=== PATIENT | female | born 1945 | race Caucasian/White ===

== ENCOUNTER 2018-02-01 08:43 | Day surgery (SDC) | payer OTHER, SELFPAY ==
[2018-02-01] VITALS (7 sets, daily range): BP systolic 101–188; BP diastolic 57–90; PULSE 61–75; RESP 13–16; TEMP 36–36.6; O2SAT 98–100; BMI 23.5
[2018-02-01] MEDS: SODIUM CHLORIDE 0.9% 1,000 ML 200 ML IV (09:43)
--- NOTE | 2018-02-01 10:31 | P.HP_ITS ---
History of Present Illness Chief complaint: [id number] Narrative: Chary Carrion is a 72 year old female who presents today for screening colonoscopy. Her last colonoscopy was about 9 and half years ago. She denies any problems or symptoms related to the function of her GI tract. She reports that she needs a colonoscopy as part about maintenance program. [facility] Surgical History Status post appendectomy Family History Sister Family history of breast cancer Social History household members: spouse Meds Home Medications Medication Instructions Recorded Confirmed Type diazepam 0 PO HSP PRN 02/01/18 History zolpidem [Ambien CR] 12.5 mg PO HSP PRN 02/01/18 02/01/18 History Generic Name Dose Route Start Last Admin Trade Name Freq PRN Reason Stop Dose Admin Sodium Chloride 1,000 mls @ 200 mls/hr 02/01/18 09:45 02/01/18 09:43 Normal Saline 0.9% IV 200 mls/hr CONT MARIA DE JESUS Administration Allergies Allergy/AdvReac Type Severity Reaction Status Date / Time bupropion [BUPROPION] Allergy Mild RASH Unverified 12/27/17 12:15 Review of Systems Review of Systems All systems reviewed & are unremarkable except as noted in HPI and below Exam Vital Signs (past 8 hours): Vital Signs - 8 hr 3 02/01/18 09:19 Temperature 96.8 F L Pulse Rate 74 Respiratory Rate 16 Blood Pressure 188/90 H Pulse Oximetry 100 Pulse Oximetry 100 Oxygen Delivery Method Room Air Narrative Exam Narrative: Very healthy-appearing well-nourished well-developed lady in no distress HEENT: Normocephalic and atraumatic, pupils equal round reactive to light and accommodation with anicteric sclera Lungs: Clear bilaterally Heart: Regular rate and rhythm Abdomen: Soft, nontender, active bowel sounds. Extremities: Warm and well perfused without edema Assessment & Plan Plan: Plan: Very pleasant and healthy 72-year-old lady here for screening colonoscopy. We have discussed the risks and benefits of procedure the patient has expressed desire to continue
--- NOTE | 2018-02-01 11:06 | PM.OP.1 ---
Operative Date/Time/Diagnoses - Date of procedure: 02/01/18 Time of procedure: 11:06 Pre-op diagnosis: Screening Post-op diagnosis: same Procedure & Clinicians Procedure: Colonoscopy to the cecum Same procedure as scheduled: Yes Indications: Last colonoscopy 10 years ago Surgeon: Kary Diggs Anesthesia Type: Sedation (Versed 9 mg; fentanyl 300 mcg) Operative Notes Findings: 1. Excellent prep 2. Very elongated and tortuous transverse colon 3. No polyps or mass lesions 4. No AV malformations 5. Diverticulosis limited to the sigmoid region 6. Grade 1-2 internal hemorrhoids Closure Type: not applicable Specimen(s): none sent Procedure in detail: After obtaining informed consent, the patient was brought to the GI suite and placed in the left lateral decubitus position on the examination table. After placement of appropriate monitors, the patient was given incremental doses of Versed and Fentanyl until an appropriate level of sedation was achieved. A time out was held per SCOAP protocol. A digital rectal examination was performed and did not reveal any masses or obstructing lesions. The colonoscope was gently passed into the patient's anus and the entire colon navigated to the level of the cecum with moderate difficulty due to colon tortuosity. Once in the cecum, the scope was withdrawn being sure to go before and beyond all mucosal folds and prominences and get an excellent examination. The findings are noted above. At the level of the rectal vault, the scope was retroflexed and the internal anal canal was examined. The scope was straightened and air aspirated from the colon. The instrument was removed from the patient's body and the procedure was concluded. The patient was allowed to awaken from sedation without difficulty and taken to the post-anesthesia care unit in good condition. Total sedation time was 19 min Total withdrawal time was 9 min Condition: stable Disposition: PACU Plan for aftercare: 1. Discharged to home 2. Plan for next colonoscopy in 10 years or as clinically indicated.
[2018-02-01] MEDS: MIDAZOLAM 5 MG/5 ML VIAL IV (11:08)
[2018-02-01] MEDS: fentaNYL 250 MCG/5 ML INJ IV (11:09)
== END 2018-02-01 12:01 | disposition home or self-care (01) ==
PROVIDERS: Visit Provider Surgery
PROC: 0DJD8ZZ Inspection of Lower Intestinal Tract, Via Natural or Artificial Opening Endoscopic (ICD-10-PCS; CPT 45378; principal; 2018-02-01 09:45)
DX: Z12.11 Encounter for screening for malignant neoplasm of colon (principal); K57.30 Diverticulosis of large intestine without perforation or abscess without bleeding; K64.1 Second degree hemorrhoids
CPT/HCPCS: G0121; 99152; J2250; J3010

== ENCOUNTER → 2018-02-14 10:56 | Outpatient (CLI) | payer OTHER, SELFPAY ==
[2018-02-14 11:58] LABS: Alanine Aminotransferase 24 IU/L (9-52); Albumin 4.4 g/dL (3.5-5.0); Albumin Globulin Ratio 1.3 (1.0-2.8); Alkaline Phosphatase 70 U/L (38-126); Aspartate Aminotransferase 32 IU/L (14-36); Bilirubin Total 0.6 mg/dL (0.2-1.3); Blood Urea Nitrogen 14 mg/dL (7-17); Calcium 9.3 mg/dL (8.4-10.2); Carbon Dioxide 28 mmol/L (22-32); Chloride 97 mmol/L (98-107); Cholesterol 239 mg/dL (140-199); Estimated Glomerular Filt Rate > 60.0 mL/min (>60); Globulin 3.3 g/dL (1.7-4.1); Glucose 95 mg/dL (80-110); HDL Cholesterol 88 mg/dL (40-60); HEMOLYSIS 18 (0-50); LDL Cholesterol Calculated 139 mg/dL (<100); Potassium 4.6 mmol/L (3.4-5.1); Sodium 135 mmol/L (137-145); Total Protein 7.7 g/dL (6.3-8.2); Triglycerides 60 mg/dL (35-150)
[2018-02-14 12:07] LABS: Hemoglobin A1C% w Est Avg Glu 5.4 % (4.0-6.0)
== END ==
PROVIDERS: PCP Internal Medicine; Visit Provider Internal Medicine
DX: I10 Essential (primary) hypertension (principal); R73.9 Hyperglycemia, unspecified
CPT/HCPCS: 36415; 80053; 80061; 83036

== ENCOUNTER → 2018-04-10 15:10 | Outpatient (CLI) | payer OTHER, SELFPAY ==
--- NOTE | 2018-04-10 15:11 | DI.MG.S_ITS ---
BILATERAL DIGITAL SCREENING MAMMOGRAM 3D/2D WITH CAD: 04/10/2018 CLINICAL: Routine screening. Family history of breast cancer. Comparison is made to exams dated: 02/02/2016 mammogram, 01/26/2015 mammogram, and 01/14/2014 mammogram - [facility]. There are scattered fibroglandular elements in both breasts. Current study was also evaluated with a Computer Aided Detection (CAD) system. No significant masses, calcifications, or other findings are seen in either breast. There has been no significant interval change. IMPRESSION: NEGATIVE There is no mammographic evidence of malignancy. A 1 year screening mammogram is recommended. This exam was interpreted at Station ID: [id number]. NOTE: For mammograms, a report in lay terms will be sent to the patient. Approximately 15% of breast malignancies will not be visualized mammographically. In the management of a palpable breast mass, a negative mammogram must not discourage biopsy of a clinically suspicious lesion. Electronically Signed By: Franklin mcclellan/ashlie:04/11/2018 10:14:15 letter sent: Normal Exam ACR BI-RADS Category 1: Negative [id number]
== END ==
PROVIDERS: PCP Internal Medicine; Visit Provider Internal Medicine
DX: Z12.31 Encounter for screening mammogram for malignant neoplasm of breast (principal); Z80.3 Family history of malignant neoplasm of breast
CPT/HCPCS: 77063; 77067

== ENCOUNTER → 2019-10-14 10:55 | Outpatient (CLI) | payer OTHER, SELFPAY ==
[2019-10-14 12:18] LABS: Alanine Aminotransferase 19 IU/L (<35); Albumin 4.4 g/dL (3.5-5.0); Albumin Globulin Ratio 1.4 (1.0-2.8); Alkaline Phosphatase 77 U/L (38-126); Aspartate Aminotransferase 28 IU/L (14-36); BUN Creatinine Ratio 17.5 (6-22); Bilirubin Total 0.5 mg/dL (0.2-1.3); Blood Urea Nitrogen 14 mg/dL (7-17); Calcium 9.9 mg/dL (8.4-10.2); Carbon Dioxide 29 mmol/L (22-32); Chloride 97 mmol/L (98-107); Cholesterol 240 mg/dL (140-199); Estimated Glomerular Filt Rate > 60.0 mL/min (>60); Globulin 3.1 g/dL (1.7-4.1); Glucose 99 mg/dL (80-110); HDL Cholesterol 90 mg/dL (40-60); HEMOLYSIS < 15 (0-50); LDL Cholesterol Calculated 139 mg/dL (<100); Sodium 134 mmol/L (137-145); Total Protein 7.5 g/dL (6.3-8.2); Triglycerides 56 mg/dL (35-150)
[2019-10-14 12:19] LABS: Potassium 5.7 mmol/L (3.4-5.1)
== END ==
PROVIDERS: PCP Internal Medicine; Visit Provider Internal Medicine
DX: E78.5 Hyperlipidemia, unspecified (principal); I10 Essential (primary) hypertension
CPT/HCPCS: 36415; 80053; 80061

== ENCOUNTER 2020-02-09 19:32 | Emergency (ER) | payer OTHER, SELFPAY ==
[2020-02-09] VITALS (11 sets, daily range): BP systolic 181–248; BP diastolic 93–131; PULSE 62–83; RESP 16–26; TEMP 36.3–36.7; O2SAT 95–99
--- NOTE | 2020-02-09 19:55 | ED_ITS ---
HPI - General Adult General Chief complaint: Altered Mental Status Stated complaint: altered level of conciousness Time Seen by Provider: 02/09/20 19:50 Source: family Mode of arrival: Ambulatory Limitations: altered mental status History of Present Illness HPI narrative: 74-year-old woman with a history of hypertension and hyperlipidemia presents with altered mental status today. Her reports that she has been acting ?off? for the last 3-4 days. More distant less talkative and increasingly anxious regarding news reports around [place]. He reports significantly increased anxiety over the last few days and this evening she seemed to simply ?shut down in turn off? period. He was able to get her to walk to the car walk into the emergency department she was incontinent of urine at the registration desk and is not responding to questions or exam today. Her notes that she had a similar episode a couple of years ago and was seen in the emergency department, eventually talked with a mental health professional and was discharged home and has done well. She is not currently on antidepressants or benzodiazepines she does have a prescription for Ambien and told him that she had taken 1 yesterday during the day. Related Data Previous Rx's Medication Instructions Recorded diazepam 5 mg tablet See Rx Instructions PO HSP PRN #10 10/21/19 tab zolpidem 12.5 mg tablet,extended See Rx Instructions .ROUTE 10/21/19 release,multiphase .COMPLEX #30 tablet lorazepam [Ativan] 0.5 mg PO TID PRN #10 tab 02/09/20 Allergies Allergy/AdvReac Type Severity Reaction Status Date / Time bupropion [BUPROPION] Allergy Mild RASH Verified 10/21/19 13:51 Review of Systems Review of Systems Narrative: Review of systems is limited by her mental condition. Her notes that she has not complained of fevers, cough, chest pain, palpitations, abdominal pain. He does say that she told him she thought she might have a bladder infection. Remainder of review was noted by the [facility] Patient History Medical History Chicken pox (Resolved) Diverticular disease of colon (Chronic ~01/2018) Hyperlipidemia (Chronic) Hypertension (Chronic) Insomnia (Chronic) Measles (Resolved) Varicose veins of both lower extremities (Chronic) Surgical History Anesthesia (Resolved) History of mandibular surgery (Resolved ~2006) Status post appendectomy (Resolved ~1972) Family History Sister Family history of breast cancer Social History marital status: number of children: 0 household members: spouse lives independently: Yes caregiver/support person: No housing: house pets and animals: No education level: college (2 years) occupational status: other (Retired.) current occupational exposures/hazards: No 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 Lying comfortably on the stretcher, slightly flushed cheeks, no labored breathing eyes are closed and she is not responding to questions. She does have purposeful movement of all 4 extremities and notes ?ouch? with in and out urine catheter. HEENT: Moist mucous membranes, normal sclera with reactive pupils, Neck: No JVD, supple Respiratory: Lungs are clear to auscultation, no wheezing no rales no rhonchi. Full and symmetrical air movement Cardiac: Regular rate and rhythm no murmurs no bruits Abdomen: Soft nontender good bowel tones, no flank pain Skin: Warm and dry, no rashes Neurologic: Grossly neurologically intact with no obvious asymmetries or abnormalities Extremities: No trauma, well perfused Psych: Flat affect, no interaction at all Initial Vital Signs Initial Vital Signs: Vital Signs Temperature 98.1 F 02/09/20 19:43 Pulse Rate 79 02/09/20 19:43 Respiratory Rate 20 02/09/20 19:43 Blood Pressure 248/131 H 02/09/20 19:43 Pulse Oximetry 99 02/09/20 19:43 Course Orders Ordered: ED Orders 02/09/20 19:44 Complete Blood Count AUTO DIFF Stat Comprehensive Metabolic Panel Stat Lactate (Lactic Acid) Stat Lipase Stat Magnesium Stat Procalcitonin Stat Thyroid Stimulating Hormone Stat Troponin I Stat 02/09/20 19:50 Urine Culture Stat Urine Drug Screen, Rapid Stat Urine Microscopic Stat 02/09/20 19:54 EKG-12 Lead Stat 02/09/20 20:19 CT head/brain wo con Stat 02/09/20 20:50 Blood Culture Stat Ceftriaxone Sodium/Dextrose (Rocephin) 1 gm in 50 mls @ 100 mls/hr IV NOW ONE Stop: 02/09/20 22:34 Discontinued Medications Labetalol HCl (Trandate) 10 mg IV NOW ONE Stop: 02/09/20 20:23 Last Admin: 02/09/20 20:44 Dose: 10 mg Documented by: LISBETH Lorazepam (Ativan) 1 mg IV NOW ONE Stop: 02/09/20 22:05 Vital Signs Vital signs: Vital Signs - 8 hr 02/09/20 19:43 02/09/20 19:49 02/09/20 19:54 Temperature 98.1 F Pulse Rate 79 82 83 Respiratory Rate 20 18 Blood Pressure 248/131 H Blood Pressure [Right Arm] 233/110 H 242/112 H Pulse Oximetry 99 98 02/09/20 20:15 02/09/20 20:35 02/09/20 20:42 Temperature Pulse Rate 69 72 79 Respiratory Rate 16 18 26 H Blood Pressure Blood Pressure [Right Arm] 205/114 H 202/108 H 202/108 H Pulse Oximetry 99 99 02/09/20 20:44 02/09/20 20:54 02/09/20 21:47 Temperature Pulse Rate 70 62 66 Respiratory Rate 16 Blood Pressure 202/108 H 183/95 H Blood Pressure [Right Arm] 183/95 H Pulse Oximetry 95 Medical Decision Making Medical Records Medical records reviewed: Yes I reviewed the patient's medical records. Lab Data Lab results reviewed: Yes I reviewed the patient's lab results. Result diagrams: 02/09/20 19:44 02/09/20 19:44 Labs: Lab Results 02/09/20 02/09/20 02/09/20 Range/Units 19:44 19:44 19:44 WBC 6.8 (4.5-11.0) X10^3/uL RBC 4.34 (4.0-5.2) X10^6/uL Hgb 14.0 (12.0-16.0) g/dL Hct 38.8 (36-46) % MCV 89.3 (80-100) fL MCH 32.3 (26-34) PG MCHC 36.1 H (30-36) % RDW 13.2 (11.6-14.8) % Plt Count 284 (150-400) X10^3/uL Neut % (Auto) 50.0 (50-75) % Lymph % (Auto) 38.4 (25-40) % Spencer % (Auto) 8.6 (3-14) % Eos % (Auto) 2.2 (2-4) % Baso % (Auto) 0.8 (0-2) % Neut # (Auto) 3400 (3462-0852) /uL Lymph # (Auto) 2600 (9463-2950) /uL Spencer # (Auto) 600 (0-900) /uL Eos # (Auto) 200 (0-450) /uL Baso # (Auto) 100 (0-100) /uL Sodium 130 L (137-145) mmol/L Potassium 3.9 (3.4-5.1) mmol/L Chloride 94 L (98-107) mmol/L Carbon Dioxide 26 (22-32) mmol/L BUN 14 (7-17) mg/dL Creatinine 0.74 (0.52-1.04) mg/dL Estimated GFR > 60.0 (>60) mL/min BUN/Creatinine Ratio 18.9 (6-22) Glucose 109 (80-110) mg/dL Lactate (0.7-2.1) mmol/L Calcium 9.9 (8.4-10.2) mg/dL Magnesium 2.2 (1.6-2.3) mg/dL Total Bilirubin 0.5 (0.2-1.3) mg/dL AST 39 H (14-36) IU/L ALT 23 (<35) IU/L Alkaline Phosphatase 76 (38-126) U/L Troponin I < 0.012 (0.01-0.034) ng/mL Total Protein 8.4 H (6.3-8.2) g/dL Albumin 4.8 (3.5-5.0) g/dL Globulin 3.6 (1.7-4.1) g/dL Albumin/Globulin Ratio 1.3 (1.0-2.8) Lipase 138 (23-300) U/L Procalcitonin < 0.05 (<0.5) ng/mL TSH (0.47-4.68) uIU/mL Urine RBC (0-5/HPF) Urine WBC (0-5/HPF) Ur Squamous Epith Cells (0-5/HPF) Urine Bacteria (None) Ur Culture Indicated? U Opiates 300ng/mL cut (Negative) Ur Oxycodone Screen (Negative) Urine Methadone Screen (Negative) Ur Barbiturates Screen (Negative) U Tricyclic Antidepress (Negative) Ur Phencyclidine Scrn (Negative) Ur Amphetamines Screen (Negative) U Methamphetamines Scrn (Negative) Ur MDMA Scrn (Ecstasy) (Negative) U Benzodiazepines Scrn (Negative) Urine Cocaine Screen (Negative) U Marijuana (THC) Screen (Negative) 02/09/20 02/09/20 02/09/20 Range/Units 19:44 19:44 19:50 WBC (4.5-11.0) X10^3/uL RBC (4.0-5.2) X10^6/uL Hgb (12.0-16.0) g/dL Hct (36-46) % MCV (80-100) fL MCH (26-34) PG MCHC (30-36) % RDW (11.6-14.8) % Plt Count (150-400) X10^3/uL Neut % (Auto) (50-75) % Lymph % (Auto) (25-40) % Spencer % (Auto) (3-14) % Eos % (Auto) (2-4) % Baso % (Auto) (0-2) % Neut # (Auto) (9111-1660) /uL Lymph # (Auto) (0921-0302) /uL Spencer # (Auto) (0-900) /uL Eos # (Auto) (0-450) /uL Baso # (Auto) (0-100) /uL Sodium (137-145) mmol/L Potassium (3.4-5.1) mmol/L Chloride (98-107) mmol/L Carbon Dioxide (22-32) mmol/L BUN (7-17) mg/dL Creatinine (0.52-1.04) mg/dL Estimated GFR (>60) mL/min BUN/Creatinine Ratio (6-22) Glucose (80-110) mg/dL Lactate 1.0 (0.7-2.1) mmol/L Calcium (8.4-10.2) mg/dL Magnesium (1.6-2.3) mg/dL Total Bilirubin (0.2-1.3) mg/dL AST (14-36) IU/L ALT (<35) IU/L Alkaline Phosphatase (38-126) U/L Troponin I (0.01-0.034) ng/mL Total Protein (6.3-8.2) g/dL Albumin (3.5-5.0) g/dL Globulin (1.7-4.1) g/dL Albumin/Globulin Ratio (1.0-2.8) Lipase (23-300) U/L Procalcitonin (<0.5) ng/mL TSH 0.84 (0.47-4.68) uIU/mL Urine RBC 0-1/hpf (0-5/HPF) Urine WBC 5-10/hpf H (0-5/HPF) Ur Squamous Epith Cells 0-1 /hpf (0-5/HPF) Urine Bacteria Moderate (10-30) H (None) Ur Culture Indicated? Specimen cultured U Opiates 300ng/mL cut (Negative) Ur Oxycodone Screen (Negative) Urine Methadone Screen (Negative) Ur Barbiturates Screen (Negative) U Tricyclic Antidepress (Negative) Ur Phencyclidine Scrn (Negative) Ur Amphetamines Screen (Negative) U Methamphetamines Scrn (Negative) Ur MDMA Scrn (Ecstasy) (Negative) U Benzodiazepines Scrn (Negative) Urine Cocaine Screen (Negative) U Marijuana (THC) Screen (Negative) 02/09/20 Range/Units 19:50 WBC (4.5-11.0) X10^3/uL RBC (4.0-5.2) X10^6/uL Hgb (12.0-16.0) g/dL Hct (36-46) % MCV (80-100) fL MCH (26-34) PG MCHC (30-36) % RDW (11.6-14.8) % Plt Count (150-400) X10^3/uL Neut % (Auto) (50-75) % Lymph % (Auto) (25-40) % Spencer % (Auto) (3-14) % Eos % (Auto) (2-4) % Baso % (Auto) (0-2) % Neut # (Auto) (7239-4447) /uL Lymph # (Auto) (2908-6188) /uL Spencer # (Auto) (0-900) /uL Eos # (Auto) (0-450) /uL Baso # (Auto) (0-100) /uL Sodium (137-145) mmol/L Potassium (3.4-5.1) mmol/L Chloride (98-107) mmol/L Carbon Dioxide (22-32) mmol/L BUN (7-17) mg/dL Creatinine (0.52-1.04) mg/dL Estimated GFR (>60) mL/min BUN/Creatinine Ratio (6-22) Glucose (80-110) mg/dL Lactate (0.7-2.1) mmol/L Calcium (8.4-10.2) mg/dL Magnesium (1.6-2.3) mg/dL Total Bilirubin (0.2-1.3) mg/dL AST (14-36) IU/L ALT (<35) IU/L Alkaline Phosphatase (38-126) U/L Troponin I (0.01-0.034) ng/mL Total Protein (6.3-8.2) g/dL Albumin (3.5-5.0) g/dL Globulin (1.7-4.1) g/dL Albumin/Globulin Ratio (1.0-2.8) Lipase (23-300) U/L Procalcitonin (<0.5) ng/mL TSH (0.47-4.68) uIU/mL Urine RBC (0-5/HPF) Urine WBC (0-5/HPF) Ur Squamous Epith Cells (0-5/HPF) Urine Bacteria (None) Ur Culture Indicated? U Opiates 300ng/mL cut Negative (Negative) Ur Oxycodone Screen Negative (Negative) Urine Methadone Screen Negative (Negative) Ur Barbiturates Screen Negative (Negative) U Tricyclic Antidepress Negative (Negative) Ur Phencyclidine Scrn Negative (Negative) Ur Amphetamines Screen Negative (Negative) U Methamphetamines Scrn Negative (Negative) Ur MDMA Scrn (Ecstasy) Negative (Negative) U Benzodiazepines Scrn Negative (Negative) Urine Cocaine Screen Negative (Negative) U Marijuana (THC) Screen Negative (Negative) Point of Care Testing Glucose POC 100 Point of care testing: Point of Care Testing Glucose POC [address] scan - head: Radiologist's Impression: IMPRESSION: No acute intracranial process. Dictated by: John Horvath M.D. on 02/09/2020 at 20:52 ECG Data Attestation: I personally reviewed and interpreted this ECG as follows: Interpretation: Sinus rhythm at a rate of [address] T wave changes laterally. Normal intervals No acute ischemic changes MDM Narrative Medical decision making narrative: 74-year-old woman who is essentially healthy significant increased stressors. Her states that they both feel that the coronavirus and response nationally is a giant coaxed to destroy the country and it is effectively doing so. He states that she was out in the yard planting today and then this evening just became increasingly anxious, combative and non communicative. Workup does suggest a incidental bladder infection without evidence of sepsis. No significant electrolyte abnormalities CT scan is unremarkable and clinical exam does not suggest stroke. Patient is able to talk and when she does she is aggressive and clearly simply wants to go home. Her states that she has never made any suicidal or homicidal comments of any type and feels very comfortable that she is not in any danger of hurting herself. We opted to treat her bladder infection with a single dose of IV ceftriaxone, a single dose of a mg of IV Ativan to see if she is able to sleep better this evening and discharge home with her . I will also give her prescription for 10 tablets of 0.5 mg of Ativan that she can use as needed for anxiety and will strongly encourage her to follow-up with her primary care physician regarding her anxiety and to re-evaluate her blood pressure. Discharge Plan Departure Patient Disposition: Home Clinical Impression: Acute reaction to situational stress, Acute UTI Hypertension Qualifiers: Hypertension type: unspecified Qualified Code(s): I10 - Essential (primary) hypertension Instructions: DI for Anxiety -- Adult Activity Restrictions/Additional Instructions: Thank you for coming in today I found no acute medical issues that explain Chary's withdrawn state and significant agitation this evening. Specifically, there is no infection, there is no bleeding in her brain no tumors in her brain and no evidence of acute heart or lung issues. She does have a simple bladder infection, she has been given a dose of IV cef triaxone (antibiotic) in the emergency department and this should effectively treat the bladder infection without the need for additional medication. In the emergency department she did receive IV Ativan, and anxiety medicine. Hopefully this will allow Chary to sleep soundly this evening and re-evaluate everything with fresh eyes in the morning. If there are any concerns that Chary is going to hurt herself or hurt anyone else, please feel free to return to the emergency room and if necessary due called 911. I am going to give Chary a prescription for 0.5 mg of oral Ativan. This can be taken up to every 6 hours for acute anxiety over the next couple of days. 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 Please follow-up with your primary care physician regarding your elevated blood pressure in the emergency department today. It was significantly elevated and may simply come down when she is not quite so stressed but it does need further follow-up I hope all goes well. Prescriptions: New lorazepam [Ativan] 0.5 mg tablet 0.5 mg PO TID PRN (Reason: anxiety) Qty: 10 RF: 0 No Action diazepam 5 mg tablet See Rx Instructions PO HSP PRN (Reason: Sedation) Qty: 10 RF: 2 zolpidem 12.5 mg tablet,ext release multiphase See Rx Instructions .ROUTE .COMPLEX Qty: 30 RF: 3 Referrals: Usman Olea MD [Primary Care Provider] -
--- NOTE | 2020-02-09 19:58 | PC.NURSE ---
in out cath done , pt yelled Fuck this. will not follow commands, not talking. reports she is stressed out from all of this crap going on
--- NOTE | 2020-02-09 20:01 | PC.NURSE ---
reports she took an ambien in the daytime.
[2020-02-09 20:09] LABS: Bacteria Urine Moderate (10-30); Culture Indicated Urine Specimen Cultured; RBC Urine 0-1/HPF (0-5/HPF); Squamous Epithelial Cell Urine 0-1 /HPF (0-5/HPF); WBC Urine 5-10/HPF (0-5/HPF)
[2020-02-09 20:10] LABS: UR Morphine/Opiate cutoff 300 Negative (Negative); Ur Creatinine Normal (Normal); Ur Specific Gravity Normal (Normal); Urine Amphetamines Negative (Negative); Urine Barbiturates Negative (Negative); Urine Benzodiazepines Negative (Negative); Urine Cocaine Negative (Negative); Urine MDMA Negative (Negative); Urine Methadone Negative (Negative); Urine Methamphetamines Negative (Negative); Urine Oxycodone Negative (Negative); Urine Phencyclidine Negative (Negative); Urine Tetrahydrocannabinol Negative (Negative); Urine Tricyclic Antidepressant Negative (Negative); Urine pH Normal (Normal)
--- NOTE | 2020-02-09 20:19 | DI.CT.S_ITS ---
PROCEDURE: CT HEAD/BRAIN WO CON INDICATIONS: Altered mental status TECHNIQUE: Noncontrast 4.5 mm thick angled axial sections acquired from the foramen magnum to the vertex, with coronal and sagittal reformats. For radiation dose reduction, the following was used: automated exposure control, adjustment of mA and/or kV according to patient size. COMPARISON: None. FINDINGS: Image quality: Excellent. CSF spaces: Basal cisterns are patent. No extra-axial fluid collections. The ventricles are symmetric in size and shape. Brain: No intracranial bleeds or masses. Left frontoparietal encephalomalacia There is cerebral volume loss for age, with resultant ventricular and sulcal prominence. There are periventricular and deep white matter chronic small vessel ischemic changes. There is intracranial internal carotid artery atherosclerosis. Skull and face: Calvarium and visualized facial bones appear intact, without suspicious lesions. Sinuses: Visualized sinuses and mastoids are clear. IMPRESSION: No acute intracranial process. Dictated by: John Horvath M.D. on 02/09/2020 at 20:52 Approved by: John Horvath M.D. on 02/09/2020 at 20:56
[2020-02-09 20:31] LABS: Add Manual Diff / Slide Review NO; Basophils Absolute Auto 100 /uL (0-100); Basophils Percent Auto 0.8 % (0-2); Eosinophils Absolute Auto 200 /uL (0-450); Eosinophils Percent Auto 2.2 % (2-4); Hematocrit 38.8 % (36-46); Lymphocytes Absolute Auto 2600 /uL (1100-4500); Lymphocytes Percent Auto 38.4 % (25-40); Mean Corpuscular HGB Conc 36.1 % (30-36); Mean Corpuscular Hemoglobin 32.3 PG (26-34); Mean Corpuscular Volume 89.3 fL (80-100); Monocytes Absolute Auto 600 /uL (0-900); Monocytes Percent Auto 8.6 % (3-14); Neutrophils Absolute Auto 3400 /uL (1500-7000); Platelet Count 284 X10^3/uL (150-400); Red Blood Cell Count 4.34 X10^6/uL (4.0-5.2); Red Cell Distribution Width 13.2 % (11.6-14.8); White Blood Cell Count 6.8 X10^3/uL (4.5-11.0)
[2020-02-09 20:38] LABS: Alanine Aminotransferase 23 IU/L (<35); Albumin 4.8 g/dL (3.5-5.0); Albumin Globulin Ratio 1.3 (1.0-2.8); Alkaline Phosphatase 76 U/L (38-126); Aspartate Aminotransferase 39 IU/L (14-36); BUN Creatinine Ratio 18.9 (6-22); Bilirubin Total 0.5 mg/dL (0.2-1.3); Blood Urea Nitrogen 14 mg/dL (7-17); Calcium 9.9 mg/dL (8.4-10.2); Carbon Dioxide 26 mmol/L (22-32); Chloride 94 mmol/L (98-107); Estimated Glomerular Filt Rate > 60.0 mL/min (>60); Globulin 3.6 g/dL (1.7-4.1); Glucose 109 mg/dL (80-110); HEMOLYSIS 27 (0-50); Lipase 138 U/L (23-300); Magnesium 2.2 mg/dL (1.6-2.3); Potassium 3.9 mmol/L (3.4-5.1); Sodium 130 mmol/L (137-145); Total Protein 8.4 g/dL (6.3-8.2)
[2020-02-09] MEDS: LABETALOL 20 MG/4 ML SYRINGE 10 MG IV (20:44)
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
[2020-02-09 20:49] LABS: Troponin I < 0.012 ng/mL (0.01-0.034)
[2020-02-09 20:56] LABS: Procalcitonin < 0.05 ng/mL (<0.5)
[2020-02-09 21:22] LABS: Thyroid Stimulating Hormone 0.84 uIU/mL (0.47-4.68)
[2020-02-09] MEDS: CEFTRIAXONE 1 GM/50 ML FROZ.PIGGY IV (22:22)
[2020-02-09] MEDS: LORazepam 2 MG/ML INJ 1 MG IV (22:23)
--- NOTE | 2020-02-09 22:38 | PC.NURSE ---
Pt agitated and yelling out while I was giving meds, I just want to go home and lie on my couch, is that too much to ask?! and cursing at her .
== END 2020-02-09 23:01 | disposition home or self-care (01) ==
PROVIDERS: Emergency Provider Emergency Medicine; PCP Internal Medicine
DX: F43.0 Acute stress reaction (principal); N39.0 Urinary tract infection, site not specified; I10 Essential (primary) hypertension; E78.5 Hyperlipidemia, unspecified
CPT/HCPCS: 36415; 70450; 80053; 80305; 81015; 82962; 83605; 83690; 83735; 84145; 84443; 84484; 85025; 87040; 87077; 87086; 87186; 93005; 93010; 96365; 96375; 99284; J2060

== ENCOUNTER 2020-02-11 01:58 | Emergency (ER) | payer OTHER, SELFPAY ==
[2020-02-11] VITALS (8 sets, daily range): BP systolic 115–233; BP diastolic 66–123; PULSE 59–84; RESP 14–18; TEMP 36.6; O2SAT 98–100
--- NOTE | 2020-02-11 02:17 | ED.AMS ---
HPI - Altered Mental Status General Chief Complaint: Altered Mental Status Stated Complaint: spouse states mental problem Time Seen by Provider: 02/11/20 02:17 History of Present Illness HPI narrative: 74-year-old woman with a history of hypertension and hyperlipidemia presents for the 2nd night in a row to the emergency room with extreme anxiety and agitation. Last night she presented with significantly altered mental status and symptoms that were almost consistent with a conversion disorder. After Ativan she was more talkative however remained recalcitrant. In discussion with she and her she was discharged home with Ativan prescription to help with the severe anxiety that he believes is secondary to their belief that Covid is and entirely fabricated hoax that is being perpetrated to destroy our country. She was discharged home with Ativan which her states she did take today however she was increasingly agitated, unfocused and belligerent. He states that she would almost min ideally talk to herself and then slam doors and stump on floors and then come wake him a tube rate him more. He brought her back into the emergency department and she was quite abusive to him in the admissions area. On exam she is unwilling to interact with me or offer any additional history at all Related Data Previous Rx's Medication Instructions Recorded lorazepam [Ativan] 0.5 mg PO TID PRN #10 tab 02/11/20 diazepam 5 mg tablet See Rx Instructions PO HSP PRN #30 02/14/20 tab zolpidem 12.5 mg tablet,extended 12.5 mg PO BEDTIME PRN #30 tab 02/14/20 release,multiphase Allergies Allergy/AdvReac Type Severity Reaction Status Date / Time bupropion [BUPROPION] Allergy Mild RASH Verified 02/14/20 13:55 Review of Systems Review of Systems Narrative: Her states that she has had very little sleep over the last 3 days significantly increased caffeine intake over the last 3 days until today when he is withheld any caffeinated drinks from her at all and attempt to try to get her to sleep. ROS Unobtainable: Unobtainable due to mental condition Patient History Medical History Chicken pox (Resolved) Diverticular disease of colon (Chronic ~01/2018) Hyperlipidemia (Chronic) Hypertension (Chronic) Insomnia (Chronic) Measles (Resolved) Varicose veins of both lower extremities (Chronic) Surgical History Anesthesia (Resolved) History of mandibular surgery (Resolved ~2006) Status post appendectomy (Resolved ~1972) Family History Sister Family history of breast cancer Social History marital status: number of children: 0 household members: spouse lives independently: Yes caregiver/support person: No housing: house pets and animals: No education level: college occupational status: other current occupational exposures/hazards: No 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 HEENT: Moist mucous membranes, normal sclera with reactive pupils, Neck: No JVD, supple Respiratory: Lungs are clear to auscultation, no wheezing no rales no rhonchi. Full and symmetrical air movement Cardiac: Regular rate and rhythm no murmurs no bruits Abdomen: Soft nontender good bowel tones, no flank pain Skin: Warm and dry, no rashes, no bruises no indication of self-harm Neurologic: Grossly neurologically intact with no obvious asymmetries or abnormalities Extremities: No trauma, well perfused Psych: Agitated and uncooperative Initial Vital Signs Initial Vital Signs: Vital Signs Temperature 97.8 F 02/11/20 02:00 Pulse Rate 84 02/11/20 02:00 Respiratory Rate 18 02/11/20 02:00 Blood Pressure 233/123 H 02/11/20 02:00 Pulse Oximetry 99 02/11/20 02:00 Course Orders Ordered: Discontinued Medications Diphenhydramine HCl (Benadryl) 25 mg IV NOW ONE Stop: 02/11/20 02:20 Last Admin: 02/11/20 02:39 Dose: 25 mg Documented by: NANCI Haloperidol (Haldol) 2 mg IV NOW ONE Stop: 02/11/20 02:20 Last Admin: 02/11/20 02:38 Dose: 2 mg Documented by: NANCI Lorazepam (Ativan) 1 mg IV NOW ONE Stop: 02/11/20 02:20 Last Admin: 02/11/20 02:38 Dose: 1 mg Documented by: NANCI Vital Signs Vital signs: Vital Signs - 8 hr 02/11/20 02:00 02/11/20 04:09 02/11/20 05:00 Temperature 97.8 F Pulse Rate 84 65 69 Respiratory Rate 18 16 18 Blood Pressure 233/123 H Blood Pressure [Left Arm] 115/88 147/75 H Pulse Oximetry 99 100 100 02/11/20 05:30 Temperature Pulse Rate 62 Respiratory Rate 16 Blood Pressure Blood Pressure [Left Arm] 146/87 H Pulse Oximetry 100 MDM - Altered Mental Status Medical Records Attestation: I reviewed the patient's medical records. Lab Data Attestation: I reviewed the patient's lab results. Result diagrams: 02/11/20 03:05 02/11/20 06:20 Labs: Lab Results 02/11/20 02/11/20 02/11/20 Range/Units 03:05 03:05 05:51 WBC 5.8 (4.5-11.0) X10^3/uL RBC 4.00 (4.0-5.2) X10^6/uL Hgb 12.8 (12.0-16.0) g/dL Hct 35.9 L (36-46) % MCV 89.7 (80-100) fL MCH 32.0 (26-34) PG MCHC 35.6 (30-36) % RDW 13.3 (11.6-14.8) % Plt Count 265 (150-400) X10^3/uL Neut % (Auto) 49.2 L (50-75) % Lymph % (Auto) 35.0 (25-40) % [place] % (Auto) 11.4 (3-14) % Eos % (Auto) 3.6 (2-4) % Baso % (Auto) 0.8 (0-2) % Neut # (Auto) 2800 (2477-8686) /uL Lymph # (Auto) 2000 (9960-3312) /uL [place] # (Auto) 700 (0-900) /uL Eos # (Auto) 200 (0-450) /uL Baso # (Auto) 0 (0-100) /uL Sodium 129 L (137-145) mmol/L Potassium 3.7 (3.4-5.1) mmol/L Chloride 98 (98-107) mmol/L Carbon Dioxide 24 (22-32) mmol/L BUN 15 (7-17) mg/dL Creatinine 0.71 (0.52-1.04) mg/dL Estimated GFR > 60.0 (>60) mL/min BUN/Creatinine Ratio 21.1 (6-22) Glucose 107 (80-110) mg/dL Calcium 8.6 (8.4-10.2) mg/dL Total Bilirubin 0.3 (0.2-1.3) mg/dL AST 34 (14-36) IU/L ALT 20 (<35) IU/L Alkaline Phosphatase 66 (38-126) U/L Total Protein 6.9 (6.3-8.2) g/dL Albumin 3.8 (3.5-5.0) g/dL Globulin 3.1 (1.7-4.1) g/dL Albumin/Globulin Ratio 1.2 (1.0-2.8) Urine Color Yellow Urine Appearance Clear Urine pH 6.0 (4.5-8.0) Ur Specific [place] 1.010 (1.000-1.035) Urine Protein Negative (Negative) Urine Glucose (UA) Negative (Negative) g/dL Urine Ketones Negative (NEGATIVE) Urine Occult Blood Negative (Negative) Urine Nitrate Negative (Negative) Urine Bilirubin Negative (NEGATIVE) Urine Urobilinogen 0.2 (0.2) E.U./dL Ur Leukocyte Esterase Trace H (NEGATIVE) Urine RBC None seen (0-5/HPF) Urine WBC 1-5/hpf (0-5/HPF) Urine Bacteria None seen (None) Ur Culture Indicated? Specimen cultured U Opiates 300ng/mL cut (Negative) Ur Oxycodone Screen (Negative) Urine Methadone Screen (Negative) Ur Barbiturates Screen (Negative) U Tricyclic Antidepress (Negative) Ur Phencyclidine Scrn (Negative) Ur Amphetamines Screen (Negative) U Methamphetamines Scrn (Negative) Ur MDMA Scrn (Ecstasy) (Negative) U Benzodiazepines Scrn (Negative) Urine Cocaine Screen (Negative) U Marijuana (THC) Screen (Negative) 02/11/20 02/11/20 Range/Units 05:51 06:20 WBC (4.5-11.0) X10^3/uL RBC (4.0-5.2) X10^6/uL Hgb (12.0-16.0) g/dL Hct (36-46) % MCV (80-100) fL MCH (26-34) PG MCHC (30-36) % RDW (11.6-14.8) % Plt Count (150-400) X10^3/uL Neut % (Auto) (50-75) % Lymph % (Auto) (25-40) % [place] % (Auto) (3-14) % Eos % (Auto) (2-4) % Baso % (Auto) (0-2) % Neut # (Auto) (1056-2061) /uL Lymph # (Auto) (5675-5181) /uL [place] # (Auto) (0-900) /uL Eos # (Auto) (0-450) /uL Baso # (Auto) (0-100) /uL Sodium 132 L (137-145) mmol/L Potassium 4.1 (3.4-5.1) mmol/L Chloride 100 (98-107) mmol/L Carbon Dioxide 24 (22-32) mmol/L BUN 15 (7-17) mg/dL Creatinine 0.77 (0.52-1.04) mg/dL Estimated GFR > 60.0 (>60) mL/min BUN/Creatinine Ratio 19.5 (6-22) Glucose 99 (80-110) mg/dL Calcium 8.8 (8.4-10.2) mg/dL Total Bilirubin (0.2-1.3) mg/dL AST (14-36) IU/L ALT (<35) IU/L Alkaline Phosphatase (38-126) U/L Total Protein (6.3-8.2) g/dL Albumin (3.5-5.0) g/dL Globulin (1.7-4.1) g/dL Albumin/Globulin Ratio (1.0-2.8) Urine Color Urine Appearance Urine pH (4.5-8.0) Ur Specific [place] (1.000-1.035) Urine Protein (Negative) Urine Glucose (UA) (Negative) g/dL Urine Ketones (NEGATIVE) Urine Occult Blood (Negative) Urine Nitrate (Negative) Urine Bilirubin (NEGATIVE) Urine Urobilinogen (0.2) E.U./dL Ur Leukocyte Esterase (NEGATIVE) Urine RBC (0-5/HPF) Urine WBC (0-5/HPF) Urine Bacteria (None) Ur Culture Indicated? U Opiates 300ng/mL cut Negative (Negative) Ur Oxycodone Screen Negative (Negative) Urine Methadone Screen Negative (Negative) Ur Barbiturates Screen Negative (Negative) U Tricyclic Antidepress Negative (Negative) Ur Phencyclidine Scrn Negative (Negative) Ur Amphetamines Screen Negative (Negative) U Methamphetamines Scrn Negative (Negative) Ur MDMA Scrn (Ecstasy) Negative (Negative) U Benzodiazepines Scrn Negative (Negative) Urine Cocaine Screen Negative (Negative) U Marijuana (THC) Screen Negative (Negative) Imaging Data CT head February 08: Radiologist's Impression: IMPRESSION: No acute intracranial process. Dictated by: John Horvath M.D. on 02/09/2020 at 20:52 MDM Narrative Medical decision making narrative: CT scan last night was unremarkable. Labs were repeated today of note her mildly low sodium of 130 is now measured at 129. She is given a L of normal saline in the emergency department and BMP will be redrawn. Because of her significant agitation she is given 2 mg of Haldol, 1 mg of lorazepam, 25 mg of Benadryl to see if we can help her sleep and then re-evaluate with the help of social work and additional mental health staff tomorrow. There is no evidence of intracranial masses or tumors, no evidence of infection, drug use or other toxic exposure. She has no prior history of similar behaviors. Discharge Plan Departure Patient Disposition: Home Clinical Impression: Insomnia, Anxiety Discharge Date/Time: 02/11/20 11:44 Instructions: Insomnia, DI for Anxiety -- Adult Activity Restrictions/Additional Instructions: *You have been diagnosed with [insomnia and anxiety, greatly resolved after good night's rest] *What to do: *Take medications as directed: You may increase your Ativan from 0.5mg to 1.0mg if needed for sleep or anxiety *Follow up with your primary care provider on MondayFebruary 13 at 2pm (1:45pm check in) *Return to ER if you should have any new, worsening or concerning symptoms Prescriptions: New lorazepam [Ativan] 0.5 mg tablet 0.5 mg PO TID PRN (Reason: anxiety) Qty: 10 RF: 0 No Action diazepam 5 mg tablet See Rx Instructions PO HSP PRN (Reason: Sedation) Qty: 30 RF: 1 zolpidem 12.5 mg tablet,ext release multiphase 12.5 mg PO BEDTIME PRN (Reason: insomnia) Qty: 30 RF: 3 Referrals: Usman Olea MD [Primary Care Provider] -
--- NOTE | 2020-02-11 02:30 | PC.NURSE ---
During triage patient unable to tell me where she is but was able to tell me her date, age, name and year. when patient was asked why she is here patient states because my is stupid she also states i have the perfect life and my does not accept that. when I asked the patient what that means she states my gets mad when I act myself and he calls me crazy.
[2020-02-11] MEDS: HALOPERIDOL 5 MG/ML VIAL 2 MG IV (02:38)
[2020-02-11] MEDS: LORazepam 2 MG/ML INJ 1 MG IV (02:38)
[2020-02-11] MEDS: diphenhydrAMINE 50 MG/ML VIAL 25 MG IV (02:39)
--- NOTE | 2020-02-11 02:50 | PC.NURSE ---
while I was placing the IV in the patient we had a conversation about her family (how many children and grandchildren the patient had) and the patient states that she cannot remember all of her grandchildrens names. patient states I am so mad and upset that I cannot remember all of my grandchildrens names that I love and adore so much. patient calm and cooperative. patient tolerated well.
[2020-02-11 03:20] LABS: Add Manual Diff / Slide Review NO; Basophils Absolute Auto 0 /uL (0-100); Basophils Percent Auto 0.8 % (0-2); Eosinophils Absolute Auto 200 /uL (0-450); Eosinophils Percent Auto 3.6 % (2-4); Hematocrit 35.9 % (36-46); Hemoglobin 12.8 g/dL (12.0-16.0); Lymphocytes Absolute Auto 2000 /uL (1100-4500); Mean Corpuscular HGB Conc 35.6 % (30-36); Mean Corpuscular Volume 89.7 fL (80-100); Monocytes Absolute Auto 700 /uL (0-900); Monocytes Percent Auto 11.4 % (3-14); Neutrophils Absolute Auto 2800 /uL (1500-7000); Neutrophils Percent Auto 49.2 % (50-75); Platelet Count 265 X10^3/uL (150-400); Red Cell Distribution Width 13.3 % (11.6-14.8); White Blood Cell Count 5.8 X10^3/uL (4.5-11.0)
[2020-02-11 03:30] LABS: Alanine Aminotransferase 20 IU/L (<35); Albumin 3.8 g/dL (3.5-5.0); Albumin Globulin Ratio 1.2 (1.0-2.8); Alkaline Phosphatase 66 U/L (38-126); Aspartate Aminotransferase 34 IU/L (14-36); BUN Creatinine Ratio 21.1 (6-22); Bilirubin Total 0.3 mg/dL (0.2-1.3); Blood Urea Nitrogen 15 mg/dL (7-17); Calcium 8.6 mg/dL (8.4-10.2); Carbon Dioxide 24 mmol/L (22-32); Chloride 98 mmol/L (98-107); Estimated Glomerular Filt Rate > 60.0 mL/min (>60); Globulin 3.1 g/dL (1.7-4.1); Glucose 107 mg/dL (80-110); HEMOLYSIS < 15 (0-50); Potassium 3.7 mmol/L (3.4-5.1); Sodium 129 mmol/L (137-145); Total Protein 6.9 g/dL (6.3-8.2)
[2020-02-11 06:02] LABS: Appearance Urine UA CLEAR; Bacteria Urine None Seen; Bilirubin Urine UA NEGATIVE (NEGATIVE); Color Urine UA YELLOW; Glucose Urine UA NEGATIVE (Negative); Ketones Urine UA NEGATIVE (NEGATIVE); Leukocyte Esterase Urine UA TRACE (NEGATIVE); Nitrite Urine UA NEGATIVE (Negative); Occult Blood Urine UA NEGATIVE (Negative); Protein Urine UA NEGATIVE (Negative); RBC Urine None Seen (0-5/HPF); Urobilinogen Urine UA 0.2 E.U./dL (0.2)
[2020-02-11 06:09] LABS: UR Morphine/Opiate cutoff 300 Negative (Negative); Ur Creatinine 20 (Normal); Urine Amphetamines Negative (Negative); Urine Barbiturates Negative (Negative); Urine Benzodiazepines Negative (Negative); Urine Cocaine Negative (Negative); Urine MDMA Negative (Negative); Urine Methadone Negative (Negative); Urine Methamphetamines Negative (Negative); Urine Oxycodone Negative (Negative); Urine Phencyclidine Negative (Negative); Urine Tetrahydrocannabinol Negative (Negative); Urine Tricyclic Antidepressant Negative (Negative); Urine pH 6 (Normal)
[2020-02-11 06:16] LABS: Culture Indicated Urine Specimen Cultured; WBC Urine 1-5/HPF (0-5/HPF)
[2020-02-11 06:36] LABS: BUN Creatinine Ratio 19.5 (6-22); Blood Urea Nitrogen 15 mg/dL (7-17); Calcium 8.8 mg/dL (8.4-10.2); Carbon Dioxide 24 mmol/L (22-32); Chloride 100 mmol/L (98-107); Estimated Glomerular Filt Rate > 60.0 mL/min (>60); Glucose 99 mg/dL (80-110); HEMOLYSIS < 15 (0-50); Potassium 4.1 mmol/L (3.4-5.1); Sodium 132 mmol/L (137-145)
--- NOTE | 2020-02-11 10:37 | PC.NURSE ---
1010 hrs 02/11/20 Pt awake, alert, calm, requesting to go home. at bedside, agrees disharge to home is appropriate. poultry husbandry worker Mojgan advised, Dr Osborne advised.
--- NOTE | 2020-02-11 10:59 | PC.NURSE ---
Transitions Rn Care Coordinator Mojgan met with Pt and of Pt. Instructed RN to contact Dr Olea and ask him to see Pt today, or over ride Ambien prescription at [facility].
== END 2020-02-11 11:44 | disposition home or self-care (01) ==
PROVIDERS: Emergency Medicine; Emergency Provider Emergency Medicine; PCP Internal Medicine
DX: F41.9 Anxiety disorder, unspecified (principal); G47.00 Insomnia, unspecified; I10 Essential (primary) hypertension; E78.5 Hyperlipidemia, unspecified
CPT/HCPCS: 36415; 80048; 80053; 80305; 81001; 85025; 87086; 96374; 96375; 99284; J1200; J1630; J2060

== ENCOUNTER → 2020-06-26 12:24 | Outpatient (CLI) | payer OTHER, SELFPAY ==
--- NOTE | 2020-06-26 | DI.MG.S_ITS ---
BILATERAL DIGITAL SCREENING MAMMOGRAM 3D/2D WITH CAD: 06/26/2020 CLINICAL: Routine screening. Family history of breast cancer. Comparison is made to exams dated: 04/10/2018 mammogram, 02/02/2016 mammogram, and 01/26/2015 mammogram - [facility]. There are scattered fibroglandular elements in both breasts. Current study was also evaluated with a Computer Aided Detection (CAD) system. No significant masses, calcifications, or other findings are seen in either breast. There has been no significant interval change. IMPRESSION: NEGATIVE There is no mammographic evidence of malignancy. A 1 year screening mammogram is recommended. This exam was interpreted at Station ID: [id number]. NOTE: For mammograms, a report in lay terms will be sent to the patient. Approximately 15% of breast malignancies will not be visualized mammographically. In the management of a palpable breast mass, a negative mammogram must not discourage biopsy of a clinically suspicious lesion. Electronically Signed By: Alok hernandez/ashlie:06/26/2020 13:51:23 letter sent: Normal Exam ACR BI-RADS Category 1: Negative [id number]
== END ==
PROVIDERS: PCP Internal Medicine; Referring Provider Internal Medicine; Visit Provider Internal Medicine
DX: Z12.31 Encounter for screening mammogram for malignant neoplasm of breast (principal); Z80.3 Family history of malignant neoplasm of breast
CPT/HCPCS: 77063; 77067

== ENCOUNTER → 2022-08-02 16:23 | Outpatient (CLI) | payer OTHER, SELFPAY ==
[2022-08-02 17:07] LABS: HEMOLYSIS < 15 (0-50)
[2022-08-02 17:08] LABS: Blood Urea Nitrogen 23 mg/dL (7-17); Calcium 9.2 mg/dL (8.4-10.2); Carbon Dioxide 27 mmol/L (22-32); Chloride 90 mmol/L (98-107); Estimated Glomerular Filt Rate 46 mL/min (>60); Glucose 93 mg/dL (80-110); Sodium 126 mmol/L (137-145)
[2022-08-02 17:49] LABS: Potassium 4.6 mmol/L (3.4-5.1)
== END ==
PROVIDERS: PCP Internal Medicine; Referring Provider Internal Medicine; Visit Provider Internal Medicine
DX: I10 Essential (primary) hypertension (principal)
CPT/HCPCS: 36415; 80048

== ENCOUNTER → 2022-11-22 15:00 | Outpatient (CLI) | payer OTHER, SELFPAY ==
[2022-11-22 16:02] LABS: Blood Urea Nitrogen 21 mg/dL (7-17); Calcium 9.1 mg/dL (8.4-10.2); Carbon Dioxide 28 mmol/L (22-32); Chloride 92 mmol/L (98-107); Estimated Glomerular Filt Rate 58 mL/min (>60); Glucose 78 mg/dL (80-110); HEMOLYSIS < 15 (0-50); Potassium 4.5 mmol/L (3.4-5.1); Sodium 128 mmol/L (137-145)
== END ==
PROVIDERS: PCP Internal Medicine; Referring Provider Internal Medicine; Visit Provider Internal Medicine
DX: I10 Essential (primary) hypertension (principal)
CPT/HCPCS: 36415; 80048

== ENCOUNTER 2023-06-17 23:59 | Inpatient (IN) | payer MEDICARE, OTHER, SELFPAY ==
[2023-06-18] VITALS (26 sets, daily range): BP systolic 131–233; BP diastolic 81–156; PULSE 72–99; RESP 12–19; TEMP 35.9–36.7; O2SAT 95–100; BMI 24.2
--- NOTE | 2023-06-18 00:04 | DI.CT.S_ITS ---
PROCEDURE: CT HEAD/BRAIN WO CON INDICATIONS: Confusion. TECHNIQUE: Noncontrast 4.5 mm thick angled axial sections acquired from the foramen magnum to the vertex, with coronal and sagittal reformats. For radiation dose reduction, the following was used: automated exposure control, adjustment of mA and/or kV according to patient size. COMPARISON: [facility], CT, CT HEAD/BRAIN WO CON, 02/09/2020, 20:16. FINDINGS: Image quality: Excellent. CSF spaces: Basal cisterns are patent. No extra-axial fluid collections. The ventricles are symmetric in size and shape. Brain: No intracranial bleeds or masses. There is cerebral volume loss for age, with resultant ventricular and sulcal prominence. There are periventricular and deep white matter chronic small vessel ischemic changes. There is intracranial internal carotid artery atherosclerosis. Skull and face: Calvarium and visualized facial bones appear intact, without suspicious lesions. Sinuses: Visualized sinuses and mastoids are clear. IMPRESSION: Mild microvascular atherosclerotic change in the deep white matter of each hemisphere but no acute disease is found. Dictated by: Damir Bautista M.D. on 06/18/2023 at 1:25 Approved by: Damir Bautista M.D. on 06/18/2023 at 1:26
--- NOTE | 2023-06-18 00:04 | DI.CT.S_ITS ---
PROCEDURE: CT ANGIO HEAD AND NECK INDICATIONS: Confusion. TECHNIQUE: After the administration of intravenous contrast, 1 mm thick sections acquired from the aortic arch through the [place]. 3-dimensional ufobsjz-okkphiqrx-akfskikkzt (MIP) and/or volume rendering reformats were acquired of the central intracranial vasculature and neck separately. For radiation dose reduction, the following was used: automated exposure control, adjustment of mA and/or kV according to patient size. COMPARISON: None. FINDINGS: Image quality: Diagnostic. BRAIN: CSF spaces: Ventricles are normal in size and shape. Basal cisterns are patent. No extra-axial fluid collections. Brain: No significant abnormality of the brain can be seen. Skull and face: Calvarium and facial bones appear intact, without suspicious lesions. Orbits appear normal. Sinuses: Sinuses and mastoids are clear. HEAD CT ANGIOGRAPHY: Anterior circulation: Intracranial internal carotid arteries are normal in size and flow. The flow within the paired anterior cerebral arteries is normal and symmetric. The flow within the middle cerebral arteries is normal and symmetric. The anterior communicating artery is seen. No aneurysms are seen. Posterior circulation: Visualized portions of the vertebral arteries demonstrate normal caliber, and join to form a normal appearing basilar artery. Flow within the posterior cerebral arteries is normal and symmetric. No aneurysms are seen. NECK CT ANGIOGRAPHY: Carotid system: The great vessels demonstrate a conventional anatomy as they arise from the aortic arch. The origins of the common carotid arteries appear patent. The common carotid arteries demonstrate normal caliber and courses. The bifurcation regions are both widely patent. The internal carotid arteries demonstrate normal calibers and courses. Posterior circulation: The origins of the vertebral arteries both appear widely patent. The more superior extracranial portions of both vertebral arteries also demonstrate normal courses and calibers. They join to form a normal appearing basilar artery. Soft tissues: Visualized neck soft tissues demonstrate no suspicious abnormalities. Bones: No suspicious bony lesions. Visualized cervical spine appears normally aligned. IMPRESSION: No evidence of significant atherosclerotic stenosis, embolic disease, and source of reported confusion is not identified. Any quantitative measurements of stenosis were performed using NASCET criteria. Dictated by: Damir Bautista M.D. on 06/18/2023 at 1:26 Approved by: Damir Bautista M.D. on 06/18/2023 at 1:29
--- NOTE | 2023-06-18 00:05 | DI.RAD.S_ITS ---
PROCEDURE: XR CHEST 1V INDICATIONS: Chest pain. TECHNIQUE: One view of the chest was acquired. COMPARISON: None. FINDINGS: Surgical changes and devices: None. Lungs and pleura: Lungs are clear. No pleural effusions or pneumothorax. Mediastinum: Mediastinal contours appear normal. Heart size is normal. Bones and chest wall: No suspicious bony lesions. Overlying soft tissues appear unremarkable. IMPRESSION: Portable chest within normal limits for age. Dictated by: Damir Bautista M.D. on 06/18/2023 at 1:24 Approved by: Damir Bautista M.D. on 06/18/2023 at 1:24
[2023-06-18 00:28] LABS: INR 0.9 (0.9-1.3); Prothrombin Time 10.7 SECONDS (10.1-12.7)
[2023-06-18 00:30] LABS: PTT Partial Thromboplastin Tim 34 SECONDS (26-36)
[2023-06-18] MEDS: SODIUM CHLORIDE 0.9% 1,000 ML 150 ML IV (00:30)
[2023-06-18 00:34] LABS: Acetaminophen < 10 ug/mL (10-30); Ethanol (ETOH) < 10 mg/dL; Salicylate 1.8 mg/dL (<20)
[2023-06-18 00:35] LABS: Add Manual Diff / Slide Review NO; Alanine Aminotransferase 21 IU/L (<35); Albumin 4.3 g/dL (3.5-5.0); Albumin Globulin Ratio 1.2 (1.0-2.8); Alkaline Phosphatase 78 U/L (38-126); Aspartate Aminotransferase 28 IU/L (14-36); BUN Creatinine Ratio 25.6 (6-22); Basophils Absolute Auto 0 /uL (0-100); Basophils Percent Auto 0.7 % (0-2); Bilirubin Total 0.4 mg/dL (0.2-1.3); Blood Urea Nitrogen 23 mg/dL (7-17); Calcium 9.6 mg/dL (8.4-10.2); Carbon Dioxide 27 mmol/L (22-32); Chloride 90 mmol/L (98-107); Creatine Kinase 107 U/L (30-135); Eosinophils Absolute Auto 100 /uL (0-450); Eosinophils Percent Auto 1.7 % (2-4); Estimated Glomerular Filt Rate > 60 mL/min (>60); Globulin 3.5 g/dL (1.7-4.1); Glucose 113 mg/dL (80-110); HEMOLYSIS < 15 (0-50); Hematocrit 37.1 % (36-46); Hemoglobin 13.1 g/dL (12.0-16.0); Lipase 156 U/L (23-300); Lymphocytes Absolute Auto 2800 /uL (1100-4500); Lymphocytes Percent Auto 41.5 % (25-40); Mean Corpuscular HGB Conc 35.2 % (30-36); Mean Corpuscular Volume 90.8 fL (80-100); Monocytes Absolute Auto 700 /uL (0-900); Neutrophils Absolute Auto 3000 /uL (1500-7000); Neutrophils Percent Auto 45.1 % (50-75); Platelet Count 316 X10^3/uL (150-400); Potassium 3.7 mmol/L (3.4-5.1); Red Blood Cell Count 4.09 X10^6/uL (4.0-5.2); Sodium 126 mmol/L (137-145); Total Protein 7.8 g/dL (6.3-8.2); White Blood Cell Count 6.7 X10^3/uL (4.5-11.0)
[2023-06-18 00:47] LABS: NT-proBNP (BNP-Adult 18+) 1600 pg/mL (<450); Troponin I 0.032 ng/mL (0.01-0.034)
[2023-06-18 00:49] LABS: Lactate (Lactic Acid) 1.3 mmol/L (0.7-2.1)
[2023-06-18 00:59] LABS: COVID19 -Nasal RAPID Negative (Negative)
[2023-06-18 01:05] LABS: Appearance Urine UA CLEAR; Bilirubin Urine UA NEGATIVE (NEGATIVE); Color Urine UA YELLOW; Glucose Urine UA NEGATIVE (Negative); Ketones Urine UA NEGATIVE (NEGATIVE); Leukocyte Esterase Urine UA NEGATIVE (NEGATIVE); Nitrite Urine UA NEGATIVE (Negative); Occult Blood Urine UA NEGATIVE (Negative); Protein Urine UA NEGATIVE (Negative); Urobilinogen Urine UA 0.2 E.U./dL (0.2)
[2023-06-18 01:06] LABS: RBC Urine None Seen (0-5/HPF); Squamous Epithelial Cell Urine 10-30 /HPF (0-5/HPF); WBC Urine 1-5/HPF (0-5/HPF)
[2023-06-18] MEDS: LABETALOL 20 MG/4 ML SYRINGE 10 MG IV (01:06)
[2023-06-18 01:07] LABS: Bacteria Urine Few (2-10)
[2023-06-18 01:07] LABS: Procalcitonin 0.04 ng/mL (<0.5)
[2023-06-18 01:08] LABS: Culture Indicated Urine Cult Not Indicated
[2023-06-18 01:39] LABS: UR Morphine/Opiate cutoff 300 Negative (Negative); Ur Creatinine Normal (Normal); Ur Specific Gravity Normal (Normal); Urine Amphetamines Negative (Negative); Urine Barbiturates Negative (Negative); Urine Benzodiazepines Positive (Negative); Urine Cocaine Negative (Negative); Urine MDMA Negative (Negative); Urine Methadone Negative (Negative); Urine Methamphetamines Negative (Negative); Urine Oxycodone Negative (Negative); Urine Phencyclidine Negative (Negative); Urine Tetrahydrocannabinol Negative (Negative); Urine Tricyclic Antidepressant Negative (Negative); Urine pH Normal (Normal)
--- NOTE | 2023-06-18 01:59 | ED_ITS ---
HPI - Altered Mental Status General Chief Complaint: Altered Mental Status Stated Complaint: ALT Mental status/GLF Time Seen by Provider: 06/18/23 00:04 Source: patient and EMS Mode of arrival: EMS History of Present Illness HPI narrative: Patient is a 78-year-old female history of hypertension presenting today with sudden onset altered mental status and fall. at bedside reports that they were watching a movie she went up stairs he hurt her getting ready for bed she was sitting kind of on the edge of the bed leaning over and then fell over. Not a significant fall no obvious injury. No antiplatelet or anticoagulation medication. EMS was called she is very combative for EMS not able to follow directions. Found to be very hypertensive. She remains hypertensive here in the ED moving all extremities. Can not provide proper history. Denies any chest pain. Begrudgingly does follow some commands. Related Data Previous Rx's Medication Instructions Recorded hydrochlorothiazide 25 mg tablet 25 mg PO DAILY #90 tabs 08/02/22 olmesartan 40 mg tablet 20 mg PO DAILY #45 tabs 08/02/22 estradiol 0.01% (0.1 mg/gram) 1 g vaginal 2XW #42.5 grams 11/22/22 vaginal cream zolpidem 12.5 mg tablet,extended See Rx Instructions .Route 03/09/23 release,multiphase .COMPLEX #60 tabs diazepam 5 mg tablet 2.5 mg PO DAILY PRN insomnia #15 05/18/23 tabs Allergies Allergy/AdvReac Type Severity Reaction Status Date / Time bupropion [BUPROPION] Allergy Mild RASH Verified 08/02/22 16:02 olanzapine [From Zyprexa] AdvReac Intermediate puffiness/s Verified 08/02/22 16:02 welling Sulfa (Sulfonamide AdvReac Mild Lethargic Verified 08/02/22 16:02 Antibiotics) Review of Systems Review of Systems ROS Unobtainable: All systems reviewed & are unremarkable except as noted in HPI and below Patient History Medical History Chicken pox Diverticular disease of colon (~01/2018) Generalized anxiety disorder Hyperlipidemia Hypertension Insomnia Measles Varicose veins of both lower extremities Surgical History Anesthesia History of mandibular surgery (~2006) Status post appendectomy (~1972) Family History Sister Family history of breast cancer Social History marital status: number of children: 0 household members: spouse lives independently: Yes caregiver/support person: No housing: house pets and animals: No education level: college occupational status: other current occupational exposures/hazards: No 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 kwame/sabianist: [employer] special kwame needs: No leisure activities: exercise, music and other Smoking Status: Former smoker second hand exposure: No alcohol intake: former substance use type: does not use Smoking Status: Former smoker alcohol intake frequency: 0-2 drinks per day Substance Use Type: does not use Exam Initial Vital Signs Initial Vital Signs: Vital Signs Temperature 97.7 F 06/18/23 00:17 Pulse Rate 92 H 06/18/23 00:17 Respiratory Rate 16 06/18/23 00:17 Blood Pressure 206/101 H 06/18/23 00:17 Pulse Oximetry 100 06/18/23 00:17 Oxygen Delivery Method Room Air 06/18/23 00:17 GENERAL: Alert 78-year-old female and in no acute distress. HEENT: Head atraumatic,EOMI, pupils reactive, face symmetric, moist mucous membranes CARDIOVASCULAR: Regular rate and rhythm without murmurs, rubs or gallops. RESPIRATORY: Breath sounds equal bilaterally, no wheezes rales or rhonchi. ABDOMEN: Soft, nontender. Normoactive bowel sounds all 4 quadrants. No guarding or rebound. EXTREMITIES: Normal range of motion, no clubbing or edema. Neurovascularly intact NEUROLOGICAL: Alert and oriented x4.Normal gait and speech. Cranial nerves II through XII grossly intact. Good [id number], good [id number], strength equal bilaterally, no dysarthria or aphasia, sensation in tact to soft touch bilaterally, no visual changes, no facial droop SKIN: Warm, dry, no laceration, no petechiae, no rashes or lesions. Scores NIH Stroke Scale Level of Conciousness: Alert, keenly responsive Ask month/age: Answers both questions correctly. Open/close eyes, close hand: Performs both tasks correctly Best gaze horizontal: Normal Visual ocampo: No visual loss Facial palsy: Normal symetrical movement Left arm drift: No drift for full 10 sec Right arm drift: No drift for full 10 sec Left leg drift: No drift for full 5 sec Right leg drift: No drift for full 5 sec Limb ataxia: Absent Sensory on face/arms/legs: Normal, no sensory loss Best language: No aphasia, normal Dysarthria: Normal Extinction or inattention: No abnormality Total NIH Stroke scale score: 0 Course Orders Ordered: ED Orders 06/18/23 00:04 CT angio head and neck Stat CT head/brain wo con Stat 06/18/23 00:05 XR chest 1V Stat 06/18/23 00:09 Blood Culture Stat 06/18/23 00:10 Acetaminophen Stat Complete Blood Count AUTO DIFF Stat Comprehensive Metabolic Panel Stat ETOH [Ethanol (ETOH)] Stat Lactate (Lactic Acid) Stat Lipase Stat NT-proBNP (BNP-Adult 18+) Stat PTT Partial Thromboplastin Preet Stat Procalcitonin Stat Prothrombin Time INR Stat Salicylate Stat Troponin & CK Cardiac Panel Stat 06/18/23 00:35 COVID19 -Nasal RAPID Stat 06/18/23 00:52 UA Complete [Urinalysis and Microscopic] Stat 06/18/23 01:27 Urine Drug Screen, Rapid Stat Acetaminophen (Acetaminophen 325 Mg Tablet) 650 mg PO Q6H PRN PRN Reason: Fever/Mild Pain (1-3) Enoxaparin Sodium (Enoxaparin 40 Mg/0.4 Ml Syringe) 40 mg SUBCUT DAILY [facility] Hydrochlorothiazide (Hydrochlorothiazide 25 Mg Tablet) 25 mg PO DAILY [facility] Losartan Potassium (Losartan 50 Mg Tablet) 100 mg PO DAILY [facility] Naloxone HCl (Naloxone 0.4 Mg/Ml Vial) 0.2 mg IV Q2MIN PRN PRN Reason: Opiate Reversal Nitroglycerin (Nitroglycerin Oint 1 Inch/Gm Oint...G.) 1.5 inch TOP Q4H [facility] Oxycodone HCl (Oxycodone Ir 5 Mg Tablet) 5 mg PO Q3H PRN PRN Reason: Pain, Moderate (4-6) Sodium Chloride (Sodium Chloride 0.9% Flush) 10 ml IV PRN PRN PRN Reason: Flush Sodium Chloride (Sodium Chloride 0.9% Flush) 10 ml IV BID [facility] Discontinued Medications Sodium Chloride (Normal Saline 0.9%) 1,000 mls @ 150 mls/hr IV CONT MARIA DE JESUS Last Infusion: 10/01/23 02:37 Dose: 0 mls/hr Documented By: Admin: 06/18/23 00:30 Dose: 150 mls/hr Documented By: ELEAZAR Labetalol HCl (Labetalol 20 Mg/4 Ml Syringe) 10 mg IV NOW ONE Stop: 06/18/23 01:00 Last Admin: 06/18/23 01:06 Dose: 10 mg Documented By: ELEAZAR Nitroglycerin (Nitroglycerin Oint 1 Inch/Gm Oint...G.) 1.5 inch TOP Q4H [facility] Last Admin: 06/18/23 04:01 Dose: 1.5 inch Documented By: YELITZA Vital Signs Vital signs: Vital Signs - 8 hr 06/18/23 00:17 06/18/23 01:06 06/18/23 00:27 Temperature 97.7 F Pulse Rate 92 H 91 H 88 Respiratory Rate 16 15 Blood Pressure 206/101 H 212/105 H Pulse Oximetry 100 100 Oxygen Delivery Method Room Air 06/18/23 00:30 06/18/23 00:30 06/18/23 00:57 Temperature Pulse Rate 86 Respiratory Rate 17 Blood Pressure 205/100 H 214/156 H Pulse Oximetry 99 Oxygen Delivery Method 06/18/23 00:57 06/18/23 01:00 06/18/23 01:00 Temperature Pulse Rate 99 H 97 H Respiratory Rate 17 16 Blood Pressure 212/105 H Pulse Oximetry 98 98 Oxygen Delivery Method 06/18/23 01:13 06/18/23 01:13 06/18/23 01:15 Temperature Pulse Rate 82 Respiratory Rate 17 Blood Pressure 213/101 H 198/106 H Pulse Oximetry 97 Oxygen Delivery Method 06/18/23 01:15 06/18/23 01:20 06/18/23 01:20 Temperature Pulse Rate 76 75 Respiratory Rate 14 15 Blood Pressure 186/95 H Pulse Oximetry 98 97 Oxygen Delivery Method 06/18/23 01:25 06/18/23 01:25 06/18/23 01:30 Temperature Pulse Rate 72 Respiratory Rate 13 Blood Pressure 174/94 H 194/102 H Pulse Oximetry 98 Oxygen Delivery Method 06/18/23 01:30 06/18/23 01:35 06/18/23 01:35 Temperature Pulse Rate 79 80 Respiratory Rate 19 18 Blood Pressure 191/105 H Pulse Oximetry 95 98 Oxygen Delivery Method 06/18/23 01:40 06/18/23 01:40 06/18/23 01:45 Temperature Pulse Rate 80 Respiratory Rate 15 Blood Pressure 188/102 H 217/106 H Pulse Oximetry 98 Oxygen Delivery Method 06/18/23 01:45 06/18/23 01:50 06/18/23 01:50 Temperature Pulse Rate 81 81 Respiratory Rate 13 15 Blood Pressure 211/104 H Pulse Oximetry 97 99 Oxygen Delivery Method 06/18/23 01:55 06/18/23 01:55 06/18/23 02:01 Temperature Pulse Rate 80 83 Respiratory Rate 15 Blood Pressure 193/107 H Pulse Oximetry 98 Oxygen Delivery Method 06/18/23 02:03 06/18/23 02:03 06/18/23 02:05 Temperature Pulse Rate 81 81 Respiratory Rate 14 15 Blood Pressure 215/98 H Pulse Oximetry 99 98 Oxygen Delivery Method MDM - Altered Mental Status Lab Data 06/18/23 00:10 06/18/23 00:10 Labs: Lab Results 06/18/23 06/18/23 06/18/23 Range/Units 00:10 00:10 00:10 WBC 6.7 (4.5-11.0) X10^3/uL RBC 4.09 (4.0-5.2) X10^6/uL Hgb 13.1 (12.0-16.0) g/dL Hct 37.1 (36-46) % MCV 90.8 (80-100) fL MCH 32.0 (26-34) PG MCHC 35.2 (30-36) % RDW 13.0 (11.6-14.8) % Plt Count 316 (150-400) X10^3/uL Neut % (Auto) 45.1 L (50-75) % Lymph % (Auto) 41.5 H (25-40) % [place] % (Auto) 11.0 (3-14) % Eos % (Auto) 1.7 L (2-4) % Baso % (Auto) 0.7 (0-2) % Neut # (Auto) 3000 (6641-6821) /uL Lymph # (Auto) 2800 (9362-8400) /uL [place] # (Auto) 700 (0-900) /uL Eos # (Auto) 100 (0-450) /uL Baso # (Auto) 0 (0-100) /uL PT 10.7 (10.1-12.7) SECONDS INR 0.9 (0.9-1.3) APTT 34 (26-36) SECONDS Sodium (137-145) mmol/L Potassium (3.4-5.1) mmol/L Chloride (98-107) mmol/L Carbon Dioxide (22-32) mmol/L BUN (7-17) mg/dL Creatinine (0.52-1.04) mg/dL Estimated GFR (>60) mL/min BUN/Creatinine Ratio (6-22) Glucose (80-110) mg/dL Lactate (0.7-2.1) mmol/L Calcium (8.4-10.2) mg/dL Total Bilirubin (0.2-1.3) mg/dL AST (14-36) IU/L ALT (<35) IU/L Alkaline Phosphatase (38-126) U/L Total Creatine Kinase (30-135) U/L Troponin I (0.01-0.034) ng/mL NT-Pro-B Natriuret Pep (<450) pg/mL Total Protein (6.3-8.2) g/dL Albumin (3.5-5.0) g/dL Globulin (1.7-4.1) g/dL Albumin/Globulin Ratio (1.0-2.8) Lipase (23-300) U/L Procalcitonin (<0.5) ng/mL Urine Color Urine Appearance Urine pH (4.5-8.0) Ur Specific [place] (1.000-1.035) Urine Protein (Negative) Urine Glucose (UA) (Negative) g/dL Urine Ketones (NEGATIVE) Urine Occult Blood (Negative) Urine Nitrate (Negative) Urine Bilirubin (NEGATIVE) Urine Urobilinogen (0.2) E.U./dL Ur Leukocyte Esterase (NEGATIVE) Urine RBC (0-5/HPF) Urine WBC (0-5/HPF) Ur Squamous Epith Cells (0-5/HPF) Urine Bacteria (None) Ur Culture Indicated? Salicylates 1.8 (<20) mg/dL U Opiates 300ng/mL cut (Negative) Ur Oxycodone Screen (Negative) Urine Methadone Screen (Negative) Acetaminophen < 10 (10-30) ug/mL Ur Barbiturates Screen (Negative) U Tricyclic Antidepress (Negative) Ur Phencyclidine Scrn (Negative) Ur Amphetamines Screen (Negative) U Methamphetamines Scrn (Negative) Ur MDMA Scrn (Ecstasy) (Negative) U Benzodiazepines Scrn (Negative) Urine Cocaine Screen (Negative) U Marijuana (THC) Screen (Negative) Ethyl Alcohol < 10 ( - 10) mg/dL SARS-CoV-2 (PCR) (Negative) 06/18/23 06/18/23 06/18/23 Range/Units 00:10 00:10 00:10 WBC (4.5-11.0) X10^3/uL RBC (4.0-5.2) X10^6/uL Hgb (12.0-16.0) g/dL Hct (36-46) % MCV (80-100) fL MCH (26-34) PG MCHC (30-36) % RDW (11.6-14.8) % Plt Count (150-400) X10^3/uL Neut % (Auto) (50-75) % Lymph % (Auto) (25-40) % [place] % (Auto) (3-14) % Eos % (Auto) (2-4) % Baso % (Auto) (0-2) % Neut # (Auto) (6980-6147) /uL Lymph # (Auto) (1718-4890) /uL [place] # (Auto) (0-900) /uL Eos # (Auto) (0-450) /uL Baso # (Auto) (0-100) /uL PT (10.1-12.7) SECONDS INR (0.9-1.3) APTT (26-36) SECONDS Sodium 126 L (137-145) mmol/L Potassium 3.7 (3.4-5.1) mmol/L Chloride 90 L (98-107) mmol/L Carbon Dioxide 27 (22-32) mmol/L BUN 23 H (7-17) mg/dL Creatinine 0.90 (0.52-1.04) mg/dL Estimated GFR > 60 (>60) mL/min BUN/Creatinine Ratio 25.6 H (6-22) Glucose 113 H (80-110) mg/dL Lactate 1.3 (0.7-2.1) mmol/L Calcium 9.6 (8.4-10.2) mg/dL Total Bilirubin 0.4 (0.2-1.3) mg/dL AST 28 (14-36) IU/L ALT 21 (<35) IU/L Alkaline Phosphatase 78 (38-126) U/L Total Creatine Kinase 107 (30-135) U/L Troponin I 0.032 (0.01-0.034) ng/mL NT-Pro-B Natriuret Pep 1600 H (<450) pg/mL Total Protein 7.8 (6.3-8.2) g/dL Albumin 4.3 (3.5-5.0) g/dL Globulin 3.5 (1.7-4.1) g/dL Albumin/Globulin Ratio 1.2 (1.0-2.8) Lipase 156 (23-300) U/L Procalcitonin 0.04 (<0.5) ng/mL Urine Color Urine Appearance Urine pH (4.5-8.0) Ur Specific [place] (1.000-1.035) Urine Protein (Negative) Urine Glucose (UA) (Negative) g/dL Urine Ketones (NEGATIVE) Urine Occult Blood (Negative) Urine Nitrate (Negative) Urine Bilirubin (NEGATIVE) Urine Urobilinogen (0.2) E.U./dL Ur Leukocyte Esterase (NEGATIVE) Urine RBC (0-5/HPF) Urine WBC (0-5/HPF) Ur Squamous Epith Cells (0-5/HPF) Urine Bacteria (None) Ur Culture Indicated? Salicylates (<20) mg/dL U Opiates 300ng/mL cut (Negative) Ur Oxycodone Screen (Negative) Urine Methadone Screen (Negative) Acetaminophen (10-30) ug/mL Ur Barbiturates Screen (Negative) U Tricyclic Antidepress (Negative) Ur Phencyclidine Scrn (Negative) Ur Amphetamines Screen (Negative) U Methamphetamines Scrn (Negative) Ur MDMA Scrn (Ecstasy) (Negative) U Benzodiazepines Scrn (Negative) Urine Cocaine Screen (Negative) U Marijuana (THC) Screen (Negative) Ethyl Alcohol ( - 10) mg/dL SARS-CoV-2 (PCR) (Negative) 06/18/23 06/18/23 06/18/23 Range/Units 00:35 00:52 01:27 WBC (4.5-11.0) X10^3/uL RBC (4.0-5.2) X10^6/uL Hgb (12.0-16.0) g/dL Hct (36-46) % MCV (80-100) fL MCH (26-34) PG MCHC (30-36) % RDW (11.6-14.8) % Plt Count (150-400) X10^3/uL Neut % (Auto) (50-75) % Lymph % (Auto) (25-40) % [place] % (Auto) (3-14) % Eos % (Auto) (2-4) % Baso % (Auto) (0-2) % Neut # (Auto) (4546-0019) /uL Lymph # (Auto) (0105-9917) /uL [place] # (Auto) (0-900) /uL Eos # (Auto) (0-450) /uL Baso # (Auto) (0-100) /uL PT (10.1-12.7) SECONDS INR (0.9-1.3) APTT (26-36) SECONDS Sodium (137-145) mmol/L Potassium (3.4-5.1) mmol/L Chloride (98-107) mmol/L Carbon Dioxide (22-32) mmol/L BUN (7-17) mg/dL Creatinine (0.52-1.04) mg/dL Estimated GFR (>60) mL/min BUN/Creatinine Ratio (6-22) Glucose (80-110) mg/dL Lactate (0.7-2.1) mmol/L Calcium (8.4-10.2) mg/dL Total Bilirubin (0.2-1.3) mg/dL AST (14-36) IU/L ALT (<35) IU/L Alkaline Phosphatase (38-126) U/L Total Creatine Kinase (30-135) U/L Troponin I (0.01-0.034) ng/mL NT-Pro-B Natriuret Pep (<450) pg/mL Total Protein (6.3-8.2) g/dL Albumin (3.5-5.0) g/dL Globulin (1.7-4.1) g/dL Albumin/Globulin Ratio (1.0-2.8) Lipase (23-300) U/L Procalcitonin (<0.5) ng/mL Urine Color Yellow Urine Appearance Clear Urine pH 7.0 (4.5-8.0) Ur Specific [place] 1.010 (1.000-1.035) Urine Protein Negative (Negative) Urine Glucose (UA) Negative (Negative) g/dL Urine Ketones Negative (NEGATIVE) Urine Occult Blood Negative (Negative) Urine Nitrate Negative (Negative) Urine Bilirubin Negative (NEGATIVE) Urine Urobilinogen 0.2 (0.2) E.U./dL Ur Leukocyte Esterase Negative (NEGATIVE) Urine RBC None seen (0-5/HPF) Urine WBC 1-5/hpf (0-5/HPF) Ur Squamous Epith Cells 10-30 /hpf H D (0-5/HPF) Urine Bacteria Few (2-10) H (None) Ur Culture Indicated? Cult not indicated Salicylates (<20) mg/dL U Opiates 300ng/mL cut Negative (Negative) Ur Oxycodone Screen Negative (Negative) Urine Methadone Screen Negative (Negative) Acetaminophen (10-30) ug/mL Ur Barbiturates Screen Negative (Negative) U Tricyclic Antidepress Negative (Negative) Ur Phencyclidine Scrn Negative (Negative) Ur Amphetamines Screen Negative (Negative) U Methamphetamines Scrn Negative (Negative) Ur MDMA Scrn (Ecstasy) Negative (Negative) U Benzodiazepines Scrn Positive H (Negative) Urine Cocaine Screen Negative (Negative) U Marijuana (THC) Screen Negative (Negative) Ethyl Alcohol ( - 10) mg/dL SARS-CoV-2 (PCR) Negative (Negative) Imaging Data Extremity x-ray #1: Radiologist's Impression: PROCEDURE:? CT HEAD/BRAIN WO CON ? INDICATIONS:? Confusion. ? TECHNIQUE:? Noncontrast 4.5 mm thick angled axial sections acquired from the foramen magnum to the vertex, with coronal and sagittal reformats.? For radiation dose reduction, the following was used:? automated exposure control, adjustment of mA and/or kV according to patient size.? ? COMPARISON:? [facility], CT, CT HEAD/BRAIN WO CON, 02/09/2020, 20:16. ? FINDINGS:? Image quality:? Excellent.? ? CSF spaces:? Basal cisterns are patent.? No extra-axial fluid collections.? The ventricles are symmetric in size and shape.? ? Brain:? No intracranial bleeds or masses.? There is cerebral volume loss for age, with resultant ventricular and sulcal prominence.? There are periventricular and deep white matter chronic small vessel ischemic changes.? There is intracranial internal carotid artery atherosclerosis.? ? Skull and face:? Calvarium and visualized facial bones appear intact, without suspicious lesions.? ? Sinuses:? Visualized sinuses and mastoids are clear.? ? IMPRESSION:? Mild microvascular atherosclerotic change in the deep white matter of each hemisphere but no acute disease is found. ? ? Dictated by: Damir Bautista M.D. on 06/18/2023 at 1:25 ? Extremity x-ray #2: Radiologist's Impression: PROCEDURE:? CT ANGIO HEAD AND NECK ? INDICATIONS:? Confusion. ? TECHNIQUE:? After the administration of intravenous contrast, 1 mm thick sections acquired from the aortic arch through the [place] of [place].? 3-dimensional ezdehws-onmfptzde-gvwebbxlzn (MIP) and/or volume rendering reformats were acquired of the central intracranial vasculature and neck separately. For radiation dose reduction, the following was used:? automated exposure control, adjustment of mA and/or kV according to patient size.? ? COMPARISON:? None. ? FINDINGS:? Image quality:? Diagnostic.? ? BRAIN:? CSF spaces:? Ventricles are normal in size and shape.? Basal cisterns are patent.? No extra-axial fluid collections.? ? Brain:? No significant abnormality of the brain can be seen. ? ? ? Skull and face:? Calvarium and facial bones appear intact, without suspicious lesions.? Orbits appear normal.? ? Sinuses:? Sinuses and mastoids are clear.? ? HEAD CT ANGIOGRAPHY:? Anterior circulation:? Intracranial internal carotid arteries are normal in size and flow.? The flow within the paired anterior cerebral arteries is normal and symmetric.? The flow within the middle cerebral arteries is normal and symmetric.? The anterior communicating artery is seen.? No aneurysms are seen.? ? Posterior circulation:? Visualized portions of the vertebral arteries demonstrate normal caliber, and join to form a normal appearing basilar artery.? Flow within the posterior cerebral arteries is normal and symmetric.? No aneurysms are seen.? ? NECK CT ANGIOGRAPHY:? Carotid system:? The great vessels demonstrate a conventional anatomy as they arise from the aortic arch.? The origins of the common carotid arteries appear patent.? The common carotid arteries demonstrate normal caliber and courses.? The bifurcation regions are both widely patent.? The internal carotid arteries demonstrate normal calibers and courses.? ? Posterior circulation:? The origins of the vertebral arteries both appear widely patent.? The more superior extracranial portions of both vertebral arteries also demonstrate normal courses and calibers.? They join to form a normal appearing basilar artery.? ? Soft tissues:? Visualized neck soft tissues demonstrate no suspicious abnormalities.? ? Bones:? No suspicious bony lesions.? Visualized cervical spine appears normally aligned.? IMPRESSION:? No evidence of significant atherosclerotic stenosis, embolic disease, and source of reported confusion is not identified. ? Any quantitative measurements of stenosis were performed using NASCET criteria.? ? ? Dictated by: Damir Bautista M.D. on 06/18/2023 at 1:26 ? ? Chest x-ray: Radiologist's Impression: PROCEDURE:? XR CHEST 1V ? INDICATIONS:? Chest pain. ? TECHNIQUE:? One view of the chest was acquired.? ? COMPARISON:? None. ? FINDINGS:? ? Surgical changes and devices:? None.? ? Lungs and pleura:? Lungs are clear.? No pleural effusions or pneumothorax.? ? Mediastinum:? Mediastinal contours appear normal.? Heart size is normal.? ? Bones and chest wall:? No suspicious bony lesions.? Overlying soft tissues appear unremarkable.? ? ? IMPRESSION:? Portable chest within normal limits for age. ? ? Dictated by: Damir Bautista M.D. on 06/18/2023 at 1:24 ? ? ECG Data Interpretation: Sinus rhythm rate 92 W[place] interval 192 QRS [address] changes T-wave inversion noted in lead 3 MDM Narrative Medical decision making narrative: Patient is 78-year-old female presents today after a fall confusion and c ombativeness. Does not sound like fall was very significant. Head CT and CT angio do not show any evidence of intracranial hemorrhage been do show some microvascular changes. Her confusion and combativeness supple for TIA. Certainly confusion and mental status is waxing and waning nursing staff reports improvement and then reports declined. She is having some repetitive questioning possible transient global amnesia. She is NIH of 0. No infection at this time. She does have hypertension possible hypertensive encephalopathy she is given 1 dose of labetalol difficult to say if your symptoms improved or not. Is at bedside asked her to lift her leg she stared at me and said ?I am . Dr. Olea updated on patient's symptoms test results agrees with an observation and further work up. Discharge Plan Departure Patient Disposition: Admitted as Observation Clinical Impression: Brain TIA, Altered mental status Admit Date/Time: 06/18/23 02:10 Admit Provider: Usman Olea
[2023-06-18] MEDS: NITROGLYCERIN OINT 1 INCH/GM OINT...G. 1.5 INCH TOP ×2 (04:01→12:48)
--- NOTE | 2023-06-18 04:15 | PC.ADMIT ---
Addendum entered by Ashli Aleman R.N. 06/18/23 07:58: Noted at 0700 that patient had pulled off telemetry unit. Attempted to replace it and she became upset telling RN to leave room and get out. Spoken to calmly but patient ended up slapping RN. When addressed as Chary patient stated my name is Venessa, and I'm . Also noted that patient had pulled out IV and was requesting that identity band be taken off. Notified ICU that patient had removed telemetry and was not allowing staff to replace. Addendum entered by Ashli Aleman R.N. 06/18/23 07:57: Day RN, Karen, notified that home med list still needs to be reconciled. Original Note: [id number] Shila Jones Admission Note: The patient,Chary Carrion,78 y/o, was given written information regarding hospital policies, unit procedures and contact persons. Patient's smoking status: Former smoker. Vital Signs - 8 hr 06/18/23 00:17 06/18/23 01:06 06/18/23 00:27 Temperature 97.7 F Pulse Rate 92 H 91 H 88 Respiratory Rate 16 15 Blood Pressure 206/101 H 212/105 H Pulse Oximetry 100 100 Oxygen Delivery Method Room Air Oxygen Flow Rate 06/18/23 00:30 06/18/23 00:30 06/18/23 00:57 Temperature Pulse Rate 86 Respiratory Rate 17 Blood Pressure 205/100 H 214/156 H Pulse Oximetry 99 Oxygen Delivery Method Oxygen Flow Rate 06/18/23 00:57 06/18/23 01:00 06/18/23 01:00 Temperature Pulse Rate 99 H 97 H Respiratory Rate 17 16 Blood Pressure 212/105 H Pulse Oximetry 98 98 Oxygen Delivery Method Oxygen Flow Rate 06/18/23 01:13 06/18/23 01:13 06/18/23 01:15 Temperature Pulse Rate 82 Respiratory Rate 17 Blood Pressure 213/101 H 198/106 H Pulse Oximetry 97 Oxygen Delivery Method Oxygen Flow Rate 06/18/23 01:15 06/18/23 01:20 06/18/23 01:20 Temperature Pulse Rate 76 75 Respiratory Rate 14 15 Blood Pressure 186/95 H Pulse Oximetry 98 97 Oxygen Delivery Method Oxygen Flow Rate 06/18/23 01:25 06/18/23 01:25 06/18/23 01:30 Temperature Pulse Rate 72 Respiratory Rate 13 Blood Pressure 174/94 H 194/102 H Pulse Oximetry 98 Oxygen Delivery Method Oxygen Flow Rate 06/18/23 01:30 06/18/23 01:35 06/18/23 01:35 Temperature Pulse Rate 79 80 Respiratory Rate 19 18 Blood Pressure 191/105 H Pulse Oximetry 95 98 Oxygen Delivery Method Oxygen Flow Rate 06/18/23 01:40 06/18/23 01:40 06/18/23 01:45 Temperature Pulse Rate 80 Respiratory Rate 15 Blood Pressure 188/102 H 217/106 H Pulse Oximetry 98 Oxygen Delivery Method Oxygen Flow Rate 06/18/23 01:45 06/18/23 01:50 06/18/23 01:50 Temperature Pulse Rate 81 81 Respiratory Rate 13 15 Blood Pressure 211/104 H Pulse Oximetry 97 99 Oxygen Delivery Method Oxygen Flow Rate 06/18/23 01:55 06/18/23 01:55 06/18/23 02:01 Temperature Pulse Rate 80 83 Respiratory Rate 15 Blood Pressure 193/107 H Pulse Oximetry 98 Oxygen Delivery Method Oxygen Flow Rate 06/18/23 02:03 06/18/23 02:03 06/18/23 02:05 Temperature Pulse Rate 81 81 Respiratory Rate 14 15 Blood Pressure 215/98 H Pulse Oximetry 99 98 Oxygen Delivery Method Oxygen Flow Rate 06/18/23 02:15 06/18/23 02:15 06/18/23 04:01 Temperature Pulse Rate 79 77 Respiratory Rate 16 Blood Pressure 200/107 H 188/106 H Pulse Oximetry 100 Oxygen Delivery Method Oxygen Flow Rate 06/18/23 03:45 06/18/23 04:10 Temperature 96.7 F L Pulse Rate 77 Respiratory Rate 12 Blood Pressure 188/106 H Pulse Oximetry 100 Oxygen Delivery Method Room Air Oxygen Flow Rate 0 Patient admitted to room 207 from ER per wheelchair and assisted into bed. Patient sometimes responds to questions asked and other times with stare at staff with angry expression or close eyes and not respond at all. Spouse presented with patient and patient agitated and angry, swearing at both spouse and staff calling use you fuckers and directing us all to go in loud, angry voice. Once settled in bed staff and spouse left patient in room with bed alarm on. Patient had requested warm blankets and water which she was given and after staff/spouse left room she was calm and quiet. When spouse went back into room she again became agitated with him and directed him to go and leave which he then did. Spouse provided reassurance as he was upset and embarrassed by her behavior. When RN went back into room she directed me that she had to go to bathroom and insisted the commode be brought to her. Assisted to [facility] [place] and she voided 650cc clear, light yellow urine; denied dysuria. Assisted back into bed and vitals taken although she initially would verbally decline any care and pull her arm away when blood pressure cuff placed but allowed vitals to be taken when talked to calmly and told RN would leave after she was able to get vitals. At one point she stated she was and it was just me and my water as she laid on the bed sipping from the straw. Was able to answer with her name, and age but would not answer the other orientation question. Breath sounds were CTA with RA sat of 100%. HRR w/telemetry reading of SR w/1st degree AVB. BP elevated at 188/106 and allowed Nitro-bid paste to be applied. BT present and abdomen is soft. Feet were cool to touch but had + pedal pulses. No skin issues were noted but did not allow gown to be pulled up to fully view her back. She refused to have SCD's applied. Denied pain although spouse reported she has complained of some chronic back pain. Oriented to call light and bed controls. Plan of care reviewed with spouse. He was unable to list her medications or doses and did not know when her ambien or diazepam were new orders or when she last took any of her medications. RN requested that he bring in bottles of her medications with him when he visits later today and he stated he would do that. Fall risk score is high and bed alarm is activated. Patient is in view room for safety.
--- NOTE | 2023-06-18 07:00 | DI.ECHO.S_ITS ---
[place] [facility]+ [facility] +---------+ : : [address] : [address] [place] : : : : [id number] : : : : Phone: [phone] Echocardiogram Report + + :Name: GRACE LUCIANO Study Date: 06/19/2023 Height: 65 in : :[facility] ReadingLocation: Weight: 146 lb : : Gender: Female BSA: 1.7 m2 : :: 1945 Age: 78 yrs BP: 129/66 mmHg: :Reason For Study: TIA : :Ordering Physician: JERONIMO, : :GAIL Guardado Performed By: Penny Palacio : :Referring: GAIL DECKER : + + Interpretation Summary Normal left ventricle size with hyperdynamic function and ejection fraction 65-70%. No valvular abnormality. Procedure: A two-dimensional transthoracic echocardiogram with color flow and Doppler was performed. The study quality was technically adequate. There is no prior echocardiogram noted for this patient. The patient was in sinus rhythm with heart rates between 80-91 bpm during the exam. Left Ventricle: The left ventricle is normal in size and wall thickness. The left ventricle is hyperdynamic. The ejection fraction is estimated to be 65- 70%. There are no focal wall motion abnormalities. Right Ventricle: The right ventricle is normal in size and function. Atria: The left atrial size is normal. Right atrial size is normal. There is no Doppler evidence for an interatrial shunt. Mitral Valve: The mitral valve is normal in structure and function. There is trace mitral regurgitation. Aortic Valve: The aortic valve is grossly normal. The aortic valve opens well. There is no aortic valve stenosis. No aortic regurgitation is present. Tricuspid Valve: The tricuspid valve is normal in structure and function. There is trace tricuspid regurgitation. Pulmonic Valve: The pulmonic valve is not well visualized. There is no pulmonic valvular regurgitation. Great Vessels: The aortic root is normal size. The dimensions of the ascending aorta are normal. The IVC is of normal diameter and collapses greater than 50% with a sniff. This suggests a low right atrial pressure of 3 mm Hg. Pericardium/ Pleura There is no pericardial effusion. There is no pleural effusion. MMode/2D Measurements & Calculations LVIDd: 3.9 cm LVOT diam: 1.8 cm LVIDs: 2.6 cm Ao root diam: 2.6 cm FS: 34.3 % Ao Arch Diam (Prox Trans): 2.8 cm EPSS: 0.27 cm IVSd: 0.91 cm LVPWd: 0.77 cm LV mejia. diameter/BSA (cm/m^2): 2.3 LV sys. diameter/BSA (cm/m^2): 1.5 LA A2 area: 11.5 cm2 RA long axis: 3.6 cm LA A4 area: 9.3 cm2 RA area: 9.2 cm2 LA length (vol): 3.8 cm RA vol: 19.8 ml LA vol: 23.9 ml RA : 11.5 ml/m2 LA vol index: 13.8 ml/m2 IVC diam: 0.61 cm RVD1 (basal): 2.7 cm RVD2 (mid): 2.3 cm TAPSE: 1.8 cm Doppler Measurements & Calculations Ao V2 max: 154.8 cm/sec LVOT Max Liu: 142.3 cm/sec Ao V2 mean: 106.5 cm/sec LV V1 max P.1 mmHg Ao max P.6 mmHg LV V1 VTI: 23.9 cm Ao mean P.1 mmHg YANIRA(I,D): 2.5 cm2 Ao V2 VTI: 24.3 cm YANIRA(V,D): 2.3 cm2 sev ratio: 0.98 YANIRA indexed to BSA (cm^2/m^2): 1.5 MV E max liu: 63.5 cm/sec TR max liu: 248.9 cm/sec MV A max liu: 99.3 cm/sec TR max P.8 mmHg MV E/A: 0.64 PA V2 max: 86.3 cm/sec Med Peak E' Liu: 5.8 cm/sec PA V2 mean: 63.8 cm/sec E/E' med: 11.0 PA mean P.8 mmHg Lat Peak E' Liu: 7.3 cm/sec PA pr(Accel): 52.0 mmHg E/E' lat: 8.7 E/e' average: 9.8 MV dec time: 0.19 sec SV(LVOT): 61.2 ml Electronically signed by: Dez Cobian on Reading Physician:06/19/2023 11:23 AM
--- NOTE | 2023-06-18 07:57 | PM.HP.1 ---
History of Present Illness History of Present Illness Date Patient Seen: 06/18/23 Time Patient Seen: 07:57 Chief complaint: ALT Mental status/GLF Narrative: Patient was apparently in normal state of health until last evening when after watching something on television was spouse went upstairs to get ready for bed. Spouse found her sort of slumped over the bed and minimally if at all responsive. He managed to get her down on the ground and she remained minimally responsive. He called EMS who arrived she became quite combative at that point. They managed to get her to the emergency department. Evaluation in route revealed that she was quite hypertensive. In the ER she was a bit more cooperative in seem to wax and wane in her mental status with times a more cooperation times more combativeness. She had head CT, CT angiography of the head and neck as well as chest x-ray that were unremarkable Remains quite hypertensive with minimal response to labetalol. She was admitted for further evaluation Since then she is persistently been combative. She is removed her IV her telemetry. She is refusing to take any medication whatsoever. She refused to let her blood pressure be rechecked she Rips the cuff offer arm each and every time. She ripped off her leg as well. She perseverates on repeating a phrase ?father, son, Holy spirit, Chary, Richie ?and then seems to have more normal conversation. She is oriented to person place and time. She really is not cooperative any other evaluation She moves all 4 extremities obviously Spouse reports she is been completely normal the last several days and that the phrase she is repeating his not something he is heard her say before Patient has had several episodes quite similar to this over the last 6 years or so. She gets very agitated even combative. In August 2017, patient presented to the ER with altered mental status combative behavior etcetera. This was felt to be triggered by a friend being diagnosed with Parkinson's disease prior. Although there was also issues around [place] and another friend of the family who apparently became sick and . She was given ketamine at that time which made her quite sedated. Once she began to wake she had moments of clarity but still quite aggressive and yelling at staff, although periods of lucency followed by these more combative episodes. She was evaluated by [facility] and altogether they thought it was more insomnia related as it came on quite abruptly and progressively got worse as she became sleep deprived. She was given some Ativan to help her sleep. The Ativan or time help her to sleep better and she seem to improve. Her blood pressure in the ER upon presentation that time was 205/117. She dropped all the way down to 144/53 prior to discharge from the ED. She then seem to be okay until she was seen again in the ER in January of 2020. At that time she I am less talkative and more anxious per spouse. She seem to be more catatonic than anything else and did not respond to questions or any evaluation in the emergency department. Apparently she was quite concerned about the ongoing COVID pandemic at that time. She was seen on 2 successive nights in January that year. She was given some lorazepam to begin with and became more agitated belligerent and unfocused. She was slamming doors stopping her feet and she was quite abusive to her spouse. She was given some Haldol lorazepam and Benadryl and seem to sleep and was much better upon awaking and discharged home. She was seen in follow-up in the outpatient clinic and with the combination of medications including the zolpidem and diazepam she uses chronically for sleep as well as the lorazepam that she was sent home with she apparently slept and seem to be much better. She really had no insight into her abnormal behavior. She still was expressing believe in conspiracy theories around the coronavirus pandemic at that time. At that time she was strongly recommended to discontinue use of zolpidem and diazepam for sleep and try alternate medications but she declined. She then presented again in February of 2020 with worsening sleep and decline in her overall mental status. Spouse reported she was taking does not and does not use of nonprescription nicotine lozenges which she had been using since she quit smoking many years prior. She had some paranoia around her 's suppose it attempts to drug her with medications. She apparently was quite focused again on the conspiracy of the coronavirus pandemic. She did agree to stop the nicotine lozenges which he was successful in doing. She also agree to stop the diazepam and zolpidem in favor of Zyprexa. She was seen again a week later and was off of the diazepam and lorazepam sleeping much better was taking the Zyprexa and appeared to be much more close to normal baseline mental functioning. A week later she followed up still functioning more normally from mental status standpoint but she had self discontinued the Zyprexa as she felt like it made her puffy and swollen all over. I had switched her to quetiapine in effort to help her sleep but that left her feeling drugged and dopey somewhat the next day. That that point she had the quetiapine tapered and discontinued. She did not restart any of her other medications at that point. It was at this point that her spouse finally said he thought he ?had his back ?patient's blood pressure was quite elevated in the 180 over 90s range. Patient was seen again 3 weeks later with blood pressure remaining quite elevated in the 180s over 90s range. She was reporting difficulty sleeping and really wanted to resume her zolpidem and diazepam. I declined to refill those for her and put her on trazodone instead help her sleep. A week later she was reporting no improvement in sleep although blood pressure was some better in the 160s over 80s. She was seen again about 3 weeks later blood pressure in the 150s over 80s still not sleeping well although reporting that the trazodone at a dose of 100 mg was making her feel slowly sleepy and somewhat groggy but she was not really sleeping well. At that point her zolpidem was restarted, and she was okay to use diazepam on as needed basis several times a week. She was seen again in person about 2 months later. Blood pressure was much better although she had had a reaction to lisinopril which was being used at that time and she was switched to olmesartan over the phone. Her mental status seem to be much better. She was sleeping better with his zolpidem plus as needed diazepam. She seems stable for about a year when she began to have a reaction to the on olmesartan and began to cut back on dose because she felt like it was causing a rash. She was switched to amlodipine which she subsequently self discontinued went back to low-dose losartan plus hydrochlorothiazide. That is seem to control her blood pressure and she had not been seen by me since July 2022. Overall given the above, I have come to believe that there is more of a mental health issue ongoing here than anything else. I believe the blood pressure changes are secondary to the mental status changes and not causing it but more a response to the mental status/psychotic issues. She is had some altered mental status with completely normal blood pressures and she is had elevated blood pressures with no mental status changes. I am hopeful that we can help calm her down with medication then re-evaluate her blood pressure Given the above there does seem to be some underlying mental health issue with this individual that has been exacerbated at this time. With all of these other events her blood pressure seem quite elevated at times although would come back down at x2 so not convinced the hypertension by itself is the etiology but more an effect rather than a cause. [facility] Medical History Chicken pox Diverticular disease of colon (~01/2018) Generalized anxiety disorder Hyperlipidemia Hypertension Insomnia Measles Varicose veins of both lower extremities Surgical History Anesthesia History of mandibular surgery (~2006) Status post appendectomy (~1972) Family History Sister Family history of breast cancer Social History marital status: number of children: 0 household members: spouse lives independently: Yes caregiver/support person: No housing: house pets and animals: No education level: college occupational status: other current occupational exposures/hazards: No 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 kwame/religious: [employer] special kwame needs: No leisure activities: exercise, music and other Smoking Status: Former smoker second hand exposure: No alcohol intake: former substance use type: does not use Meds Home Medications and Allergies Home Medications Medication Instructions Recorded Confirmed Type hydrochlorothiazide 25 mg tablet 25 mg PO DAILY #90 tabs 08/02/22 06/18/23 Rx estradiol 0.01% (0.1 mg/gram) 1 g vaginal 2XW #42.5 grams 11/22/22 06/18/23 Rx vaginal cream zolpidem 12.5 mg tablet,extended See Rx Instructions .Route 03/09/23 06/18/23 Rx release,multiphase .COMPLEX #60 tabs diazepam 5 mg tablet 2.5 mg PO DAILY PRN insomnia #15 05/18/23 06/18/23 Rx tabs Allergies Allergy/AdvReac Type Severity Reaction Status Date / Time bupropion [BUPROPION] Allergy Mild RASH Verified 08/02/22 16:02 lisinopril AdvReac Intermediate Cough Verified 06/18/23 14:46 olanzapine [From Zyprexa] AdvReac Intermediate puffiness/s Verified 08/02/22 16:02 welling Sulfa (Sulfonamide AdvReac Mild Lethargic Verified 08/02/22 16:02 Antibiotics) amlodipine AdvReac Feet Verified 06/18/23 14:53 swelling Review of Systems Review of Systems ROS: Yes unobtainable due to mental status Exam Vital Signs (past 8 hours): - 06/18/23 00:17 06/18/23 01:06 06/18/23 00:27 Temperature 97.7 F Pulse Rate 92 H 91 H 88 Respiratory Rate 16 15 Blood Pressure 206/101 H 212/105 H Pulse Oximetry 100 100 Oxygen Delivery Method Room Air Oxygen Flow Rate 06/18/23 00:30 06/18/23 00:30 06/18/23 00:57 Temperature Pulse Rate 86 Respiratory Rate 17 Blood Pressure 205/100 H 214/156 H Pulse Oximetry 99 Oxygen Delivery Method Oxygen Flow Rate 06/18/23 00:57 06/18/23 01:00 06/18/23 01:00 Temperature Pulse Rate 99 H 97 H Respiratory Rate 17 16 Blood Pressure 212/105 H Pulse Oximetry 98 98 Oxygen Delivery Method Oxygen Flow Rate 06/18/23 01:13 06/18/23 01:13 06/18/23 01:15 Temperature Pulse Rate 82 Respiratory Rate 17 Blood Pressure 213/101 H 198/106 H Pulse Oximetry 97 Oxygen Delivery Method Oxygen Flow Rate 06/18/23 01:15 06/18/23 01:20 06/18/23 01:20 Temperature Pulse Rate 76 75 Respiratory Rate 14 15 Blood Pressure 186/95 H Pulse Oximetry 98 97 Oxygen Delivery Method Oxygen Flow Rate 06/18/23 01:25 06/18/23 01:25 06/18/23 01:30 Temperature Pulse Rate 72 Respiratory Rate 13 Blood Pressure 174/94 H 194/102 H Pulse Oximetry 98 Oxygen Delivery Method Oxygen Flow Rate 06/18/23 01:30 06/18/23 01:35 06/18/23 01:35 Temperature Pulse Rate 79 80 Respiratory Rate 19 18 Blood Pressure 191/105 H Pulse Oximetry 95 98 Oxygen Delivery Method Oxygen Flow Rate 06/18/23 01:40 06/18/23 01:40 06/18/23 01:45 Temperature Pulse Rate 80 Respiratory Rate 15 Blood Pressure 188/102 H 217/106 H Pulse Oximetry 98 Oxygen Delivery Method Oxygen Flow Rate 06/18/23 01:45 06/18/23 01:50 06/18/23 01:50 Temperature Pulse Rate 81 81 Respiratory Rate 13 15 Blood Pressure 211/104 H Pulse Oximetry 97 99 Oxygen Delivery Method Oxygen Flow Rate 06/18/23 01:55 06/18/23 01:55 06/18/23 02:01 Temperature Pulse Rate 80 83 Respiratory Rate 15 Blood Pressure 193/107 H Pulse Oximetry 98 Oxygen Delivery Method Oxygen Flow Rate 06/18/23 02:03 06/18/23 02:03 06/18/23 02:05 Temperature Pulse Rate 81 81 Respiratory Rate 14 15 Blood Pressure 215/98 H Pulse Oximetry 99 98 Oxygen Delivery Method Oxygen Flow Rate 06/18/23 02:15 06/18/23 02:15 06/18/23 04:01 Temperature Pulse Rate 79 77 Respiratory Rate 16 Blood Pressure 200/107 H 188/106 H Pulse Oximetry 100 Oxygen Delivery Method Oxygen Flow Rate 06/18/23 03:45 06/18/23 04:10 Temperature 96.7 F L Pulse Rate 77 Respiratory Rate 12 Blood Pressure 188/106 H Pulse Oximetry 100 Oxygen Delivery Method Room Air Oxygen Flow Rate 0 Oxygen Delivery Method Room Air Oxygen Flow Rate 0 Narrative Exam Narrative: Elderly female in no obvious distress lying on a bed in the hospital She moves all 4 extremities Lungs appear clear, heart is regular rate and rhythm although can not get a good exam. Again moving all 4 extremities but detailed exam not possible Objective Labs 06/18/23 00:10 06/18/23 00:10 Labs: Laboratory Results - last 24 hr 06/18/23 06/18/23 06/18/23 00:10 00:10 00:10 WBC 6.7 RBC 4.09 Hgb 13.1 Hct 37.1 MCV 90.8 MCH 32.0 MCHC 35.2 RDW 13.0 Plt Count 316 Neut % (Auto) 45.1 L Lymph % (Auto) 41.5 H [place] % (Auto) 11.0 Eos % (Auto) 1.7 L Baso % (Auto) 0.7 Neut # (Auto) 3000 Lymph # (Auto) 2800 [place] # (Auto) 700 Eos # (Auto) 100 Baso # (Auto) 0 PT 10.7 INR 0.9 APTT 34 Sodium Potassium Chloride Carbon Dioxide BUN Creatinine Estimated GFR BUN/Creatinine Ratio Glucose Lactate Calcium Total Bilirubin AST ALT Alkaline Phosphatase Total Creatine Kinase Troponin I NT-Pro-B Natriuret Pep Total Protein Albumin Globulin Albumin/Globulin Ratio Lipase Procalcitonin Urine Color Urine Appearance Urine pH Ur Specific [place] Urine Protein Urine Glucose (UA) Urine Ketones Urine Occult Blood Urine Nitrate Urine Bilirubin Urine Urobilinogen Ur Leukocyte Esterase Urine RBC Urine WBC Ur Squamous Epith Cells Urine Bacteria Ur Culture Indicated? Salicylates 1.8 U Opiates 300ng/mL cut Ur Oxycodone Screen Urine Methadone Screen Acetaminophen < 10 Ur Barbiturates Screen U Tricyclic Antidepress Ur Phencyclidine Scrn Ur Amphetamines Screen U Methamphetamines Scrn Ur MDMA Scrn (Ecstasy) U Benzodiazepines Scrn Urine Cocaine Screen U Marijuana (THC) Screen Ethyl Alcohol < 10 SARS-CoV-2 (PCR) 06/18/23 06/18/23 06/18/23 00:10 00:10 00:10 WBC RBC Hgb Hct MCV MCH MCHC RDW Plt Count Neut % (Auto) Lymph % (Auto) [place] % (Auto) Eos % (Auto) Baso % (Auto) Neut # (Auto) Lymph # (Auto) [place] # (Auto) Eos # (Auto) Baso # (Auto) PT INR APTT Sodium 126 L Potassium 3.7 Chloride 90 L Carbon Dioxide 27 BUN 23 H Creatinine 0.90 Estimated GFR > 60 BUN/Creatinine Ratio 25.6 H Glucose 113 H Lactate 1.3 Calcium 9.6 Total Bilirubin 0.4 AST 28 ALT 21 Alkaline Phosphatase 78 Total Creatine Kinase 107 Troponin I 0.032 NT-Pro-B Natriuret Pep 1600 H Total Protein 7.8 Albumin 4.3 Globulin 3.5 Albumin/Globulin Ratio 1.2 Lipase 156 Procalcitonin 0.04 Urine Color Urine Appearance Urine pH Ur Specific [place] Urine Protein Urine Glucose (UA) Urine Ketones Urine Occult Blood Urine Nitrate Urine Bilirubin Urine Urobilinogen Ur Leukocyte Esterase Urine RBC Urine WBC Ur Squamous Epith Cells Urine Bacteria Ur Culture Indicated? Salicylates U Opiates 300ng/mL cut Ur Oxycodone Screen Urine Methadone Screen Acetaminophen Ur Barbiturates Screen U Tricyclic Antidepress Ur Phencyclidine Scrn Ur Amphetamines Screen U Methamphetamines Scrn Ur MDMA Scrn (Ecstasy) U Benzodiazepines Scrn Urine Cocaine Screen U Marijuana (THC) Screen Ethyl Alcohol SARS-CoV-2 (PCR) 06/18/23 06/18/23 06/18/23 00:35 00:52 01:27 WBC RBC Hgb Hct MCV MCH MCHC RDW Plt Count Neut % (Auto) Lymph % (Auto) [place] % (Auto) Eos % (Auto) Baso % (Auto) Neut # (Auto) Lymph # (Auto) [place] # (Auto) Eos # (Auto) Baso # (Auto) PT INR APTT Sodium Potassium Chloride Carbon Dioxide BUN Creatinine Estimated GFR BUN/Creatinine Ratio Glucose Lactate Calcium Total Bilirubin AST ALT Alkaline Phosphatase Total Creatine Kinase Troponin I NT-Pro-B Natriuret Pep Total Protein Albumin Globulin Albumin/Globulin Ratio Lipase Procalcitonin Urine Color Yellow Urine Appearance Clear Urine pH 7.0 Ur Specific [place] 1.010 Urine Protein Negative Urine Glucose (UA) Negative Urine Ketones Negative Urine Occult Blood Negative Urine Nitrate Negative Urine Bilirubin Negative Urine Urobilinogen 0.2 Ur Leukocyte Esterase Negative Urine RBC None seen Urine WBC 1-5/hpf Ur Squamous Epith Cells 10-30 /hpf H D Urine Bacteria Few (2-10) H Ur Culture Indicated? Cult not indicated Salicylates U Opiates 300ng/mL cut Negative Ur Oxycodone Screen Negative Urine Methadone Screen Negative Acetaminophen Ur Barbiturates Screen Negative U Tricyclic Antidepress Negative Ur Phencyclidine Scrn Negative Ur Amphetamines Screen Negative U Methamphetamines Scrn Negative Ur MDMA Scrn (Ecstasy) Negative U Benzodiazepines Scrn Positive H Urine Cocaine Screen Negative U Marijuana (THC) Screen Negative Ethyl Alcohol SARS-CoV-2 (PCR) Negative Assessment & Plan Assessment & Plan narrative: 1. Hypertensive crisis-patient with severe hypertension. She is refusing her oral medication. We do not have IV access. Given her previous episodes (of altered mental status) with hypertension seemingly being quite labile I am more of the believe that the hypertension is an effect of her psychotic changes rather than the cause. However if we can get her mental status improved I would be aggressive about trying to treat blood pressure, and if she will tolerate topical nitrates for instance currently I would use that to try and control her blood pressure. Right now she is refusing all oral medication and does not have intravenous access. In addition once blood pressure is better and depending on mental status may need further evaluation for possible causes of a TIA including MRI and echocardiogram but reviewing her past history since about 2017 with several of these episodes I am beginning to believe this is more of a mental illness than any sort of vascular neurologic process 2. Psychosis-I think this is the primary driving force behind her severe hypertension. As per the HPI above she is had several episodes like this over the last several years. Will trying get control of her psychosis with either oral medication which she is currently refusing or intramuscular Haldol and if needed intramuscular ketamine. I anticipate controlling or improving her mental status will improve her blood pressure as well. Some of her episodes above have possibly been related to inappropriate use of OTC medications or supplements or something. Spouse is unaware of any of this at this time and, of course, patient is unable to provide any useful information. Tox screen was positive only for the benzodiazepines that we know she takes on a regular basis. I anticipate having Psychiatry see her when available which is unfortunately not today. 3. VTE prophylaxis-patient unwilling to accept injectable medication. Unwilling to tolerate SCDs. Hopefully if we can get her mental status improved we can prophylax with these interventions
--- NOTE | 2023-06-18 09:19 | PC.NURSE ---
Addendum entered by Lupe Maharaj R.N. 06/18/23 18:47: Called MD Olea once more as patient reports she just wants to sleep. MD Olea ordered PO sleeping pills and d/c'ed chemical restraint order. This RN asked patient if she would take oral sleeping pills. She said yes. When this RN brought the medication to her, she said I won't take that! Get out! Addendum entered by Lupe Maharaj R.N. 06/18/23 16:56: MD Olea at bedside at 1245. He ordered 10mg IM Haldol shortly afterward for violent behavior. Given dose at 1336 with the help of RN coordinator Argenis, little relief for patient over the next hour. Pt still attempting to hit staff and during any patient care. MD Olea ordered a second dose, given per order. MD Olea also ordered Restraint order set, due to IM Haldol being given as a chemical restraint. Q15min safety checks done. At 1610, MD Olea ordered another dose of IM Haldol as patient still attempting to hit and kick during any care. This RN returned to patient's room before giving 3rd dose of Haldol and, using a lot of distraction and counting backwards, patient allowed this RN to check her BP, which is much improved (131/81). Called MD Olea to let him know, held 3rd dose of IM Haldol. MD Olea states MRI tomorrow if patient feeling better, not today. Pt continues to refuse full physical assessment, though she would let me listen to her heart and lungs briefly before she started swearing at me. Pt OOB with SBA to bathroom. Denies pain. Patient ate no breakfast or lunch today, though has been drinking water. MD bennett. Will continue to monitor. Addendum entered by Lupe Maharaj R.N. 06/18/23 13:10: Pt's spouse arrived at 1230 with a medication list. He is unsure how much medication is left at home and reports I don't know when she takes these medications or the last time she took them. She has a lot of ambien at home, I don't know how much is there. Updated medication list with patient's spouse. Pt seems to be mildly comforted with spouse present. Still refusing to take any oral medication or allow an accurate BP reading. Able to obtain temp, HR, and O2 - all within normal limits. BP was obtained, but patient kicking and screaming during BP reading, and done on leg. 233/145. MD Olea at bedside while this was being done. Addendum entered by Lupe Maharaj R.N. 06/18/23 11:40: Called Dr Olea. Let him know that patient refused MRI and echo - patient yelled at electronic train control technician. He stated he would be up soon to assess. Original Note: Day shift: Pt refused to let ELECTRICAL PROJECT ENGINEER take vitals. This RN told Pt How can I help you be more comfortable? Patient said Go! This RN said I need to check your vital signs and do an assessment. Then I can go. Patient said Fuck off. No, you can't touch me. This RN unable to give meds or assess patient. Pt clearly not slurring words. No noticeable weakness. Will try again in an hour. Pt is talking to herself in her room. She stated If I won't talk to my , I won't talk to you. Then immediately turned her head and said Richie, get her out of here. No one else was in the room. Richie not present.
--- NOTE | 2023-06-18 09:33 | DI.MRI.S_ITS ---
PROCEDURE: MR HEAD/BRAIN WO CON INDICATIONS: TIA TECHNIQUE: Non-contrast axial T1 spin echo, axial T2 fast spin echo, sagittal and axial FLAIR, coronal T2 fast spin echo, axial gradient echo, axial diffusion and ADC through the brain. COMPARISON: [facility], CT, CT ANGIO HEAD AND NECK, 06/18/2023, 0:31. [facility], CT, CT HEAD/BRAIN WO CON, 06/18/2023, 0:31. FINDINGS: Image quality: This examination is limited by involuntary motion artifact. CSF spaces: Ventricles appear symmetric in size and shape. Basal cisterns are patent. No extra-axial fluid collections. Brain: No intracranial bleeds or mass effects. There is cerebral volume loss for age. There are periventricular and deep white matter chronic small vessel ischemic changes. Brainstem appears normal. Diffusion-weighted images show no acute ischemic insults. No chronic ischemic insults. Normal intravascular flow voids are present. Skull and face: Calvarial bone marrow is normal in signal. Orbits are normal. Sinuses: Sinuses and mastoids are clear. IMPRESSION: No findings of acute or subacute infarction can be seen. Dictated by: David Jacobo M.D. on 06/19/2023 at 8:57 Approved by: David Jacobo M.D. on 06/19/2023 at 8:59
[2023-06-18] MEDS: HALOPERIDOL 5 MG/ML VIAL 10 MG IM ×2 (13:36→14:42)
--- NOTE | 2023-06-18 13:47 | CM.DANOTE ---
Attempted to meet with patient, but she tells CM to why don't you go away, NOW, screaming. She continues to verbalize and sing loudly alone in the room. Bedside RN is preparing medication, Richie at bedside and agrees to discussion. Chart reviewed for case assessment. Patient is a 78 year old admitted for altered mental status. states she was completely normal until last evening. He states she had something similiar happen several years ago and Dr. Olea adjusted her medication. He denies prior psychiatric illness, and states she does not currently see any psychiatric providers. He states she is usually very healthy but has had life long difficulty with sleeping. Patient refuses any interaction with healthcare team except allows in the room. CM team following for progression of care. PCP: Lefty Payer: [employer] DME: None DCP: SHAUN Tinoco RN CM Discharge Planning/Care Management CM Discharge Assessment Start: 06/18/23 13:45 Freq: Status: Active Protocol: Document 06/18/23 13:46 BQ (Rec: 06/18/23 13:47 BQ [id number]) Discharge Planning Assessment Assigned Framing Mechanic Jacqueline Tinoco RN, CM Advance Directives? No Advance Directives on File No History Provided By Family Member Has Patient been admitted in last 30 No days? Prior Living Arrangements House Household Members spouse Type of transporation used prior to Drives own vehicle admit Independent with ADL's Yes Is patient alert and oriented? No Caregiver for Another No Barriers to Discharge Yes Comment Altered mental status Discharge Plan Home Referrals Initiated Other Additional Comment TBAissatou Whiteboard Updated in Patient Room with No name and ext. # of Framing Mechanic Comment Patient will not allow any caregivers in room Review Status In Process Next Review Type Continued Stay Review
[2023-06-19 02:00] VITALS: RESP 14
[2023-06-19 05:00] VITALS: BP 129/66; PULSE 84; RESP 14; TEMP 36.3; O2SAT 96
[2023-06-19 07:50] VITALS: BP 167/96; PULSE 63; RESP 18; TEMP 36.1; O2SAT 97
[2023-06-19 08:06] VITALS: BP 167/96; PULSE 63
[2023-06-19] MEDS: LOSARTAN 50 MG TABLET 100 MG PO (08:06)
[2023-06-19] MEDS: hydroCHLOROthiazide 25 MG TABLET PO (08:06)
--- NOTE | 2023-06-19 08:20 | P.PN_ITS ---
Subjective Subjective Date Patient Seen: 06/19/23 Time Patient Seen: 08:20 Interval history: Patient received 2 doses of IM Haldol yesterday and with that seem calmer. She finally let us check her blood pressure which was actually pretty good in the 140 systolic. She then felt like she needs to sleep and requested some Ambien and diazepam. She was given this and she did sleep overnight. Blood pressure has been not quite as well controlled but certainly nothing like the 200+ systolic This morning her mental status seems to be at baseline. She is very little recollection of what happened since she watched the movie with her spouse Monday evening. She has vague recollection of being here in the hospital and seeing me for instance yesterday she could describe what I was wearing etcetera but does not really have any insight as to what is going on She tells me she was sleeping okay before she came to the hospital denies taking her medications in an unusual fashion. Does report that she stop taking the olmesartan at home because she was just feeling lethargic with it and was taking only hydrochlorothiazide and they had been monitoring her blood pressure and it was okay Had echo done this morning Tells me she is okay to try having an MRI this morning Exam Vital Signs (past 8 hours): - 06/19/23 02:00 06/19/23 05:00 06/19/23 05:00 Temperature 97.4 F L Pulse Rate 84 84 Respiratory Rate 14 14 Blood Pressure 129/66 129/66 Pulse Oximetry 96 Oxygen Flow Rate 0 06/19/23 07:50 06/19/23 08:06 Temperature 96.9 F L Pulse Rate 63 63 Respiratory Rate 18 Blood Pressure 167/96 H 167/96 H Pulse Oximetry 97 Oxygen Flow Rate 0 Oxygen Delivery Method Room Air Oxygen Flow Rate 0 Objective Labs 06/18/23 00:10 06/18/23 00:10 [facility] Medical History Chicken pox Diverticular disease of colon (~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) Generalized anxiety disorder Hyperlipidemia Hypertension Insomnia Measles Varicose veins of both lower extremities Surgical History Anesthesia History of mandibular surgery (~2006) Status post appendectomy (~1972) Family History Sister Family history of breast cancer Social History marital status: number of children: 0 household members: spouse lives independently: Yes caregiver/support person: No housing: house pets and animals: No education level: college occupational status: other current occupational exposures/hazards: No 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 Delirium/metabolic encephalopathy-patient seems to be back to baseline this morning. Spouse is here with her I am sure he will have more insight as to whether she is actually at baseline. Again I think this is more likely than not related to either some medication mismanagement at home or some psychological response to stress or perhaps even some lack of proper sleep etcetera. Difficult to know details. I am not sure that I have all of the details of what goes on in patient's home. She denies taking any dietary supplements or other medications prescription nonprescription etcetera. This point will go ahead and complete her workup for or either vascular neurologic issue by getting an MRI of her brain. ECHO has been performed and that result be available later today. Discussed very briefly with Psychiatry who feels like this is not likely an underlying psychiatric disorder but perhaps some abnormal response to increase psychological stress and or sleep deprivation etcetera. Also is concerned as I have been about the combination of the zolpidem plus the diazepam and wonders if perhaps she has done something with these drugs taking excessive doses or something along those lines. 2. Hypertension-patient did reluctantly take losartan plus hydrochlorothiazide this morning. I do think we need to try and control her blood pressure bit better. It seems likely though upon discharge she will be agreeable only to hydrochlorothiazide
--- NOTE | 2023-06-19 10:32 | CM.DPC ---
DCP Cont. Reviewed chart and team rounds for status updates. Per inpt team, pt appears to be at her baseline mental status. She is scheduled for a MRI this am, ECHO results are pending. Cooperative w/care and able to participate in decision-making needs. DCP will continue to monitor for d/c recommendations for OP resources/support needs.
[2023-06-19 11:00] VITALS: BP 125/73; PULSE 81; RESP 14; TEMP 36.4; O2SAT 96
--- NOTE | 2023-06-19 17:03 | PM.DS.1 ---
History of Present Illness History of Present Illness Date Patient Seen: 06/19/23 Time Patient Seen: 17:03 Chief complaint: ALT Mental status/GLF Narrative: Patient was apparently in normal state of health until last evening when after watching something on television was spouse went upstairs to get ready for bed. Spouse found her sort of slumped over the bed and minimally if at all responsive. He managed to get her down on the ground and she remained minimally responsive. He called EMS who arrived she became quite combative at that point. They managed to get her to the emergency department. Evaluation in route revealed that she was quite hypertensive. In the ER she was a bit more cooperative in seem to wax and wane in her mental status with times a more cooperation times more combativeness. She had head CT, CT angiography of the head and neck as well as chest x-ray that were unremarkable Remains quite hypertensive with minimal response to labetalol. She was admitted for further evaluation Since then she is persistently been combative. She is removed her IV her telemetry. She is refusing to take any medication whatsoever. She refused to let her blood pressure be rechecked she Rips the cuff offer arm each and every time. She ripped off her leg as well. She perseverates on repeating a phrase ?father, son, Holy spirit, Chary, Richie ?and then seems to have more normal conversation. She is oriented to person place and time. She really is not cooperative any other evaluation She moves all 4 extremities obviously Spouse reports she is been completely normal the last several days and that the phrase she is repeating his not something he is heard her say before Patient has had several episodes quite similar to this over the last 6 years or so. She gets very agitated even combative. In August 2017, patient presented to the ER with altered mental status combative behavior etcetera. This was felt to be triggered by a friend being diagnosed with Parkinson's disease prior. Although there was also issues around [place] and another friend of the family who apparently became sick and . She was given ketamine at that time which made her quite sedated. Once she began to wake she had moments of clarity but still quite aggressive and yelling at staff, although periods of lucency followed by these more combative episodes. She was evaluated by [facility] and altogether they thought it was more insomnia related as it came on quite abruptly and progressively got worse as she became sleep deprived. She was given some Ativan to help her sleep. The Ativan or time help her to sleep better and she seem to improve. Her blood pressure in the ER upon presentation that time was 205/117. She dropped all the way down to 144/53 prior to discharge from the ED. She then seem to be okay until she was seen again in the ER in January of 2020. At that time she I am less talkative and more anxious per spouse. She seem to be more catatonic than anything else and did not respond to questions or any evaluation in the emergency department. Apparently she was quite concerned about the ongoing COVID pandemic at that time. She was seen on 2 successive nights in January that year. She was given some lorazepam to begin with and became more agitated belligerent and unfocused. She was slamming doors stopping her feet and she was quite abusive to her spouse. She was given some Haldol lorazepam and Benadryl and seem to sleep and was much better upon awaking and discharged home. She was seen in follow-up in the outpatient clinic and with the combination of medications including the zolpidem and diazepam she uses chronically for sleep as well as the lorazepam that she was sent home with she apparently slept and seem to be much better. She really had no insight into her abnormal behavior. She still was expressing believe in conspiracy theories around the coronavirus pandemic at that time. At that time she was strongly recommended to discontinue use of zolpidem and diazepam for sleep and try alternate medications but she declined. She then presented again in February of 2020 with worsening sleep and decline in her overall mental status. Spouse reported she was taking does not and does not use of nonprescription nicotine lozenges which she had been using since she quit smoking many years prior. She had some paranoia around her 's suppose it attempts to drug her with medications. She apparently was quite focused again on the conspiracy of the coronavirus pandemic. She did agree to stop the nicotine lozenges which he was successful in doing. She also agree to stop the diazepam and zolpidem in favor of Zyprexa. She was seen again a week later and was off of the diazepam and lorazepam sleeping much better was taking the Zyprexa and appeared to be much more close to normal baseline mental functioning. A week later she followed up still functioning more normally from mental status standpoint but she had self discontinued the Zyprexa as she felt like it made her puffy and swollen all over. I had switched her to quetiapine in effort to help her sleep but that left her feeling drugged and dopey somewhat the next day. That that point she had the quetiapine tapered and discontinued. She did not restart any of her other medications at that point. It was at this point that her spouse finally said he thought he ?had his back ?patient's blood pressure was quite elevated in the 180 over 90s range. Patient was seen again 3 weeks later with blood pressure remaining quite elevated in the 180s over 90s range. She was reporting difficulty sleeping and really wanted to resume her zolpidem and diazepam. I declined to refill those for her and put her on trazodone instead help her sleep. A week later she was reporting no improvement in sleep although blood pressure was some better in the 160s over 80s. She was seen again about 3 weeks later blood pressure in the 150s over 80s still not sleeping well although reporting that the trazodone at a dose of 100 mg was making her feel slowly sleepy and somewhat groggy but she was not really sleeping well. At that point her zolpidem was restarted, and she was okay to use diazepam on as needed basis several times a week. She was seen again in person about 2 months later. Blood pressure was much better although she had had a reaction to lisinopril which was being used at that time and she was switched to olmesartan over the phone. Her mental status seem to be much better. She was sleeping better with his zolpidem plus as needed diazepam. She seems stable for about a year when she began to have a reaction to the on olmesartan and began to cut back on dose because she felt like it was causing a rash. She was switched to amlodipine which she subsequently self discontinued went back to low-dose losartan plus hydrochlorothiazide. That is seem to control her blood pressure and she had not been seen by me since July 2022. Overall given the above, I have come to believe that there is more of a mental health issue ongoing here than anything else. I believe the blood pressure changes are secondary to the mental status changes and not causing it but more a response to the mental status/psychotic issues. She is had some altered mental status with completely normal blood pressures and she is had elevated blood pressures with no mental status changes. I am hopeful that we can help calm her down with medication then re-evaluate her blood pressure Given the above there does seem to be some underlying mental health issue with this individual that has been exacerbated at this time. With all of these other events her blood pressure seem quite elevated at times although would come back down at x2 so not convinced the hypertension by itself is the etiology but more an effect rather than a cause. Discharge Providers Provider Date of admission: 06/18/23 02:10 Discharge Date: 06/19/23 Primary care physician: Usman Olea MD Discharge provider: Usman Olea MD Exam Vital Signs (past 8 hours): - 06/19/23 11:00 Temperature 97.6 F Pulse Rate 81 Respiratory Rate 14 Blood Pressure 125/73 Pulse Oximetry 96 Oxygen Delivery Method Room Air Oxygen Flow Rate 0 Objective Labs 06/18/23 00:10 06/18/23 00:10 [facility] Medical History Chicken pox Diverticular disease of colon (~01/2018) Generalized anxiety disorder Hyperlipidemia Hypertension Insomnia Measles Varicose veins of both lower extremities Surgical History Anesthesia History of mandibular surgery (~2006) Status post appendectomy (~1972) Family History Sister Family history of breast cancer Social History marital status: number of children: 0 household members: spouse lives independently: Yes caregiver/support person: No housing: house pets and animals: No education level: college occupational status: other current occupational exposures/hazards: No 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 special kwame needs: No leisure activities: exercise, music and other Smoking Status: Former smoker second hand exposure: No alcohol intake: former substance use type: does not use Discharge Plan Discharge Plan Patient Disposition: Home Discharge orders & Medications Prescriptions: New zolpidem 12.5 mg tablet,ext release multiphase 6.25 mg PO BEDTIME PRN (Reason: insomnia) Qty: 20 0RF Continued estradiol 0.01 % (0.1 mg/gram) cream 1 g VAG 2XW Qty: 42.5 4RF diazepam 5 mg tablet 2.5 mg PO DAILY PRN (Reason: insomnia) Qty: 15 1RF hydrochlorothiazide 25 mg tablet 25 mg PO DAILY Qty: 90 3RF Follow up/Referrals: Usman Olea MD [Primary Care Provider] - 07/06/23 9:00 am (APPT:07/06 @ 9:[address] Olea please arrive 15 min prior to your scheduled appointment time ) Discharge Health Status Multidrug resistant organism: No MDRO Diet/Activity/Treatments Diet: Diet as Tolerated Visit Report/Discharge Packet Stand Alone Forms: Patient Portal/API, Stroke Signs & Symptoms Discharge Data Primary Care Provider: Usman Olea Discharges patient from system. Discharge Date/Time: 06/19/23 13:12
== END 2023-06-19 13:12 | disposition home or self-care (01) | DRG 304 ==
LOC: ED 06-18 02:10 → AC 06-18 02:36
PROVIDERS: Admitting Provider Internal Medicine; Emergency Provider Emergency Medicine; PCP Internal Medicine; Referring Provider Emergency Medicine; Visit Provider Internal Medicine
DX: I16.9 Hypertensive crisis, unspecified (principal); G93.41 Metabolic encephalopathy; F29 Unspecified psychosis not due to a substance or known physiological condition; I10 Essential (primary) hypertension; G47.00 Insomnia, unspecified; Z87.891 Personal history of nicotine dependence
CPT/HCPCS: 36415; 70450; 70496; 70498; 70551; 71045; 80053; 80305; 80320; 80329; 81001; 82550; 83605; 83690; 83880; 84145; 84484; 85025; 85610; 85730; 87040; 87635; 93005; 93306; 96374; 99223; 99238; 99284; 99285; C9803; G0480; J1630; Q9967

== ENCOUNTER 2023-08-18 21:53 | Inpatient (IN) | payer MEDICARE, OTHER, SELFPAY ==
[2023-06-19 12:29] VITALS: BMI 24.2
[2023-08-18] VITALS (10 sets, daily range): BP systolic 167–237; BP diastolic 84–121; PULSE 81–115; RESP 16–22; TEMP 36.3; O2SAT 96–99; BMI 24.5
--- NOTE | 2023-08-18 22:01 | DI.RAD.S_ITS ---
PROCEDURE: XR CHEST 1V INDICATIONS: altered mental status TECHNIQUE: One view of the chest was acquired. COMPARISON: [facility], CR, XR CHEST 1V, 06/18/2023, 0:56. FINDINGS: Surgical changes and devices: None. Lungs and pleura: Lungs are clear. No pleural effusions or pneumothorax. Mediastinum: Mediastinal contours appear normal. Heart size is normal. Bones and chest wall: No suspicious bony lesions. Overlying soft tissues appear unremarkable. IMPRESSION: No acute cardiopulmonary abnormality. Dictated by: Alan Patel M.D. on 08/18/2023 at 22:20 Approved by: Alan Patel M.D. on 08/18/2023 at 22:21
[2023-08-18 22:11] LABS: Add Manual Diff / Slide Review NO; Basophils Absolute Auto 0 /uL (0-100); Basophils Percent Auto 0.6 % (0-2); Eosinophils Absolute Auto 0 /uL (0-450); Eosinophils Percent Auto 0.6 % (2-4); Hemoglobin 12.8 g/dL (12.0-16.0); Lymphocytes Absolute Auto 2100 /uL (1100-4500); Lymphocytes Percent Auto 27.4 % (25-40); Mean Corpuscular HGB Conc 35.5 % (30-36); Mean Corpuscular Hemoglobin 31.8 PG (26-34); Mean Corpuscular Volume 89.8 fL (80-100); Monocytes Absolute Auto 900 /uL (0-900); Monocytes Percent Auto 11.8 % (3-14); Neutrophils Absolute Auto 4500 /uL (1500-7000); Neutrophils Percent Auto 59.6 % (50-75); Platelet Count 297 X10^3/uL (150-400); Red Blood Cell Count 4.01 X10^6/uL (4.0-5.2); Red Cell Distribution Width 13.1 % (11.6-14.8); White Blood Cell Count 7.5 X10^3/uL (4.5-11.0)
[2023-08-18 22:21] LABS: Alanine Aminotransferase 24 IU/L (<35); Albumin 4.6 g/dL (3.5-5.0); Albumin Globulin Ratio 1.4 (1.0-2.8); Alkaline Phosphatase 84 U/L (38-126); Aspartate Aminotransferase 32 IU/L (14-36); BUN Creatinine Ratio 22.2 (6-22); Bilirubin Total 0.7 mg/dL (0.2-1.3); Blood Urea Nitrogen 18 mg/dL (7-17); Calcium 9.7 mg/dL (8.4-10.2); Carbon Dioxide 25 mmol/L (22-32); Chloride 84 mmol/L (98-107); Estimated Glomerular Filt Rate > 60 mL/min (>60); Globulin 3.4 g/dL (1.7-4.1); Glucose 124 mg/dL (80-110); HEMOLYSIS < 15 (0-50); Potassium 2.9 mmol/L (3.4-5.1); Sodium 122 mmol/L (137-145)
--- NOTE | 2023-08-18 22:47 | ED.AMS ---
HPI - Altered Mental Status General Chief Complaint: Altered Mental Status Stated Complaint: Confused, trance like Time Seen by Provider: 08/18/23 22:09 Source: patient, family, RN notes reviewed and old records reviewed Mode of arrival: Wheelchair History of Present Illness HPI narrative: 78-year-old female with history of hypertension, anxiety who presents with complaint of altered mental status. Patient has been indicate that she seemed to be fairly normal until today patient states she is been weird all day. She was not talking to her earlier today and was resistant to come to the ER but states she wanted to come to the ER because she felt weird. She states she was not able to express this. She was here with a somewhat similar episode but was found altered in June at that time had an MRI of her brain and additional workup for stroke which was negative but was found to be mildly hyponatremic. They note that she was quite hypertensive at that time and had an additional blood pressure medication added on. Patient does continue to take hydrochlorothiazide daily, diazepam has clonidine PRN and zolpidem. She states she has a mild headache, denies any significant vision changes. Denies chest pain or shortness of breath. Denies any nausea or vomiting, denies any issues with bowel movements. When asked if she is having any urinary issues she states yes but can not articulate what they are. Her notes she is had frequent urination. He jokes that he is not sure how she can urinate that frequently and not be drinking extra water. No fevers or chills. No weakness numbness or tingling appreciated. Patient does answer some questions but searches for answers or looks to her to answer others. Has been notes they added a 2nd medication with her hospitalization June. They note she had an ectopic with removal of 1 ovary remotely. No known drug allergies. No tobacco, alcohol or illicit. Dr. Olea is her primary care physician. Related Data Previous Rx's Medication Instructions Recorded estradiol 0.01% (0.1 mg/gram) 1 g vaginal 2XW #42.5 grams 11/22/22 vaginal cream diazepam 5 mg tablet 2.5 mg (1/2 x 5 mg) PO DAILY PRN 05/18/23 insomnia #15 tabs zolpidem 12.5 mg tablet,extended 6.25 mg (1/2 x 12.5 mg) PO BEDTIME 06/19/23 release,multiphase PRN insomnia #20 tabs hydrochlorothiazide 25 mg tablet 25 mg PO DAILY #90 tabs 07/20/23 clonidine HCl 0.2 mg tablet 0.2 mg PO TID PRN hypertensive 08/01/23 emergency #30 tabs Allergies Allergy/AdvReac Type Severity Reaction Status Date / Time bupropion [BUPROPION] Allergy Mild RASH Verified 08/18/23 22:02 lisinopril AdvReac Intermediate Cough Verified 08/18/23 22:02 olanzapine [From Zyprexa] AdvReac Intermediate puffiness/s Verified 08/18/23 22:02 welling Sulfa (Sulfonamide AdvReac Mild Lethargic Verified 08/18/23 22:02 Antibiotics) amlodipine AdvReac Feet Verified 08/18/23 22:02 swelling Review of Systems Review of Systems ROS Unobtainable: All systems reviewed & are unremarkable except as noted in HPI and below Patient History Medical History Generalized anxiety disorder Measles Chicken pox Diverticular disease of colon (~01/2018) Hyperlipidemia Varicose veins of both lower extremities Hypertension Insomnia Surgical History Anesthesia History of mandibular surgery (~2006) Status post appendectomy (~1972) Family History Sister Family history of breast cancer Social History marital status: number of children: 0 household members: spouse lives independently: Yes caregiver/support person: No housing: house pets and animals: No education level: college occupational status: other current occupational exposures/hazards: No 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 HEENT: Atraumatic, pupils are equal round reactive to light, extraocular movements are intact, nares are clear, TMs are clear with no fluid, there is no conjunctival pallor. Throat is clear without any exudates, erythema, tonsillar enlargement or uvular deviation, no facial droop. HEART: Regular rate and rhythm without murmur, clicks, rubs. Pulses are equal in upper and lower extremities LUNGS:Lungs clear to auscultation, no wheezes, rales, crackles, chest moves symmetrically ABD:bowel sounds normal, soft, non-tender, no guarding, rebound, rigidity, no masses noted, no hepatosplenomegaly :No CVA tenderness MSCL: Non-tender, no muscle atrophy, muscles strength 5/5 upper and lower extremities, full range of motion NEURO:CN 2-12 intact, sensation normal, reflexes 2/4 upper and lower extremities SKIN: No rash, erythema or other skin changes noted Initial Vital Signs Initial Vital Signs: Vital Signs Pulse Rate 115 H 08/18/23 21:58 Respiratory Rate 19 08/18/23 21:58 Blood Pressure 229/113 H 08/18/23 21:58 Pulse Oximetry 96 08/18/23 21:58 Oxygen Delivery Method Room Air 08/18/23 21:58 Course Orders Ordered: ED Orders 08/18/23 22:00 Complete Blood Count AUTO DIFF Stat Comprehensive Metabolic Panel Stat 08/18/23 22:01 XR chest 1V Stat EKG-12 Lead Stat 08/18/23 23:08 Creatinine Urine Random Stat Sodium Urine Random Stat Urinalysis and Microscopic Stat Urine Drug Screen, Rapid Stat 08/18/23 23:14 Ammonia (NH3) Stat 08/18/23 23:35 CT head/brain wo con Stat Sodium Chloride (Normal Saline 0.9%) 1,000 mls @ 100 mls/hr IV CONT MARIA DE JESUS Last Admin: 08/19/23 01:45 Dose: 100 mls/hr Documented By: MP Discontinued Medications Amlodipine Besylate (Amlodipine 5 Mg Tablet) 5 mg PO NOW ONE Stop: 08/19/23 00:47 Labetalol HCl (Labetalol 20 Mg/4 Ml Syringe) 10 mg IV NOW ONE Stop: 08/18/23 23:37 Last Admin: 08/18/23 23:52 Dose: 10 mg Documented By: SB Metoprolol Tartrate (Metoprolol Ir 25 Mg Tablet) 25 mg PO NOW ONE Stop: 08/19/23 00:50 Last Admin: 08/19/23 01:43 Dose: 25 mg Documented By: SEGUNDO Potassium Chloride (Potassium Chloride 20 Meq Tab) 40 meq PO NOW ONE Stop: 08/18/23 23:24 Last Admin: 08/18/23 23:37 Dose: 40 meq Documented By: ELEAZAR Vital Signs Vital signs: Vital Signs - 8 hr 08/18/23 21:58 08/18/23 21:58 08/18/23 21:59 Temperature Pulse Rate 115 H 110 H Respiratory Rate 19 21 Blood Pressure 229/113 H Pulse Oximetry 96 96 Oxygen Delivery Method Room Air 08/18/23 21:59 08/18/23 22:00 08/18/23 22:00 Temperature Pulse Rate 111 H Respiratory Rate 22 Blood Pressure 231/107 H 225/107 H Pulse Oximetry 97 Oxygen Delivery Method 08/18/23 22:02 08/18/23 22:30 08/18/23 22:31 Temperature 97.3 F L Pulse Rate 110 H 107 H 106 H Respiratory Rate 21 18 17 Blood Pressure 225/107 H Pulse Oximetry 96 98 98 Oxygen Delivery Method Room Air 08/18/23 22:31 08/18/23 23:00 08/18/23 23:00 Temperature Pulse Rate 102 H Respiratory Rate 19 Blood Pressure 216/99 H 212/121 H Pulse Oximetry 98 Oxygen Delivery Method 08/18/23 23:30 08/18/23 23:31 08/18/23 23:31 Temperature Pulse Rate 100 H 100 H Respiratory Rate 21 21 Blood Pressure 237/103 H Pulse Oximetry 98 98 Oxygen Delivery Method Room Air 08/18/23 23:57 08/18/23 23:57 08/19/23 00:00 Temperature Pulse Rate 81 79 Respiratory Rate 16 18 Blood Pressure 167/84 H Pulse Oximetry 99 98 Oxygen Delivery Method 08/19/23 00:00 08/19/23 00:16 08/19/23 00:16 Temperature Pulse Rate 77 Respiratory Rate 14 Blood Pressure 201/96 H 203/103 H Pulse Oximetry 98 Oxygen Delivery Method 08/19/23 00:22 08/19/23 00:30 08/19/23 00:30 Temperature Pulse Rate 77 77 Respiratory Rate 15 Blood Pressure 199/99 H 199/98 H Pulse Oximetry 99 Oxygen Delivery Method 08/19/23 00:45 08/19/23 00:45 Temperature Pulse Rate 78 Respiratory Rate 14 Blood Pressure 192/94 H Pulse Oximetry 98 Oxygen Delivery Method MDM - Altered Mental Status Lab Data 08/18/23 22:00 08/18/23 22:00 Labs: Lab Results 08/18/23 08/18/23 08/18/23 Range/Units 22:00 23:08 23:14 WBC 7.5 (4.5-11.0) X10^3/uL RBC 4.01 (4.0-5.2) X10^6/uL Hgb 12.8 (12.0-16.0) g/dL Hct 36.0 (36-46) % MCV 89.8 (80-100) fL MCH 31.8 (26-34) PG MCHC 35.5 (30-36) % RDW 13.1 (11.6-14.8) % Plt Count 297 (150-400) X10^3/uL Neut % (Auto) 59.6 (50-75) % Lymph % (Auto) 27.4 (25-40) % [place] % (Auto) 11.8 (3-14) % Eos % (Auto) 0.6 L (2-4) % Baso % (Auto) 0.6 (0-2) % Neut # (Auto) 4500 (4930-4169) /uL Lymph # (Auto) 2100 (5185-6216) /uL [place] # (Auto) 900 (0-900) /uL Eos # (Auto) 0 (0-450) /uL Baso # (Auto) 0 (0-100) /uL Sodium 122 L (137-145) mmol/L Potassium 2.9 L (3.4-5.1) mmol/L Chloride 84 L (98-107) mmol/L Carbon Dioxide 25 (22-32) mmol/L BUN 18 H (7-17) mg/dL Creatinine 0.81 (0.52-1.04) mg/dL Estimated GFR > 60 (>60) mL/min BUN/Creatinine Ratio 22.2 H (6-22) Glucose 124 H (80-110) mg/dL Calcium 9.7 (8.4-10.2) mg/dL Total Bilirubin 0.7 (0.2-1.3) mg/dL AST 32 (14-36) IU/L ALT 24 (<35) IU/L Alkaline Phosphatase 84 (38-126) U/L Ammonia < 9 L (9-30) umol/L Total Protein 8.0 (6.3-8.2) g/dL Albumin 4.6 (3.5-5.0) g/dL Globulin 3.4 (1.7-4.1) g/dL Albumin/Globulin Ratio 1.4 (1.0-2.8) Urine Color Yellow Urine Appearance Clear Urine pH 6.5 (4.5-8.0) Ur Specific [place] 1.010 (1.000-1.035) Urine Protein Negative (Negative) Urine Glucose (UA) Negative (Negative) g/dL Urine Ketones 1+ H (NEGATIVE) Urine Occult Blood Negative (Negative) Urine Nitrate Negative (Negative) Urine Bilirubin Negative (NEGATIVE) Urine Urobilinogen 0.2 (0.2) E.U./dL Ur Leukocyte Esterase Negative (NEGATIVE) Urine RBC None seen (0-5/HPF) Urine WBC 0-1/hpf (0-5/HPF) Ur Squamous Epith Cells 5-10 /hpf H (0-5/HPF) Urine Bacteria Few (2-10) H (None) Ur Culture Indicated? Cult not indicated Ur Random Sodium 102 H (30-90) mmol/L Urine Creatinine 24.7 mg/dL U Opiates 300ng/mL cut Negative (Negative) Ur Oxycodone Screen Negative (Negative) Urine Methadone Screen Negative (Negative) Ur Barbiturates Screen Negative (Negative) U Tricyclic Antidepress Negative (Negative) Ur Phencyclidine Scrn Negative (Negative) Ur Amphetamines Screen Negative (Negative) U Methamphetamines Scrn Negative (Negative) Ur MDMA Scrn (Ecstasy) Negative (Negative) U Benzodiazepines Scrn Positive H (Negative) Urine Cocaine Screen Negative (Negative) U Marijuana (THC) Screen Negative (Negative) Imaging Data Chest x-ray: Radiologist's Impression: [address] [address] XRay Report Signed Patient: Chary Carrion MR#: [id number] : 1945 Acct:[id number] Age/Sex: 78 / F Date of Service: 08/18/23 Loc: ED Accession Number: [id number] Procedure: XR chest 1V Ordering Provider: Milka Cary D.O. PROCEDURE: XR CHEST 1V INDICATIONS: altered mental status TECHNIQUE: One view of the chest was acquired. COMPARISON: [facility], CR, XR CHEST 1V, 06/18/2023, 0:56. FINDINGS: Surgical changes and devices: None. Lungs and pleura: Lungs are clear. No pleural effusions or pneumothorax. Mediastinum: Mediastinal contours appear normal. Heart size is normal. Bones and chest wall: No suspicious bony lesions. Overlying soft tissues appear unremarkable. IMPRESSION: No acute cardiopulmonary abnormality. Dictated by: Alan Patel M.D. on 08/18/2023 at 22:20 Approved by: Alan Patel M.D. on 08/18/2023 at 22:21 CT scan - head: Radiologist's Impression: [place] [address] CT Scan Report Signed Patient: Chary Carrion MR#: [id number] : 1945 Acct:[id number] Age/Sex: 78 / F Date of Service: 08/18/23 Loc: ED Accession Number: [id number] Procedure: CT head/brain wo con Ordering Provider: Milka Cary D.O. PROCEDURE: CT HEAD/BRAIN WO CON INDICATIONS: htn, hyponatremia, altered TECHNIQUE: Noncontrast 4.5 mm thick angled axial sections acquired from the foramen magnum to the vertex, with coronal and sagittal reformats. For radiation dose reduction, the following was used: automated exposure control, adjustment of mA and/or kV according to patient size. COMPARISON: [facility], CT, CT HEAD/BRAIN WO CON, 06/18/2023, 0:31. FINDINGS: Image quality: Excellent. CSF spaces: Basal cisterns are patent. No extra-axial fluid collections. Ventricles are normal in size and shape. Brain: No midline shift. No intracranial masses or hemorrhage. No area of hypodensity in a large vascular distribution to suggest acute infarction. Periventricular hypodensity consistent with chronic microvascular ischemic change. Age-related parenchymal loss. Skull and face: Calvarium and visualized facial bones are intact, without suspicious lesions. Sinuses: Visualized sinuses and mastoids are clear. IMPRESSION: No acute intracranial abnormality. Dictated by: Alan Patel M.D. on 08/19/2023 at 0:28 Approved by: Alan Patel M.D. on 08/19/2023 at 0:29 ECG Data Attestation: I personally reviewed and interpreted this ECG as follows: Prior ECG tracings: available for review Interpretation: Sinus tachycardia rate of 104 W[place] 172 QRS of [address] QTC [address] No acute ST elevation or depression noted patient. Patient has prior from 06/18/2023 nonspecific change. MDM Narrative Medical decision making narrative: 78-year-old female who presents with altered mental status patient is hypertensive even on multiple rechecks. Unclear if she is taking her medication regularly besides her regular HCTZ. No localizing deficit but seems confused and had difficulty ambulating in the department. CBC is negative for acute change, sodium is 122 was 126 on 06/18/2023 has been 129 region but this may account for some of her altered mental status potassium 2.9, chloride is 84 with a CO2 of 25 and a BUN 18 creatinine 0.81 glucose is 124 with normal LFTs, ammonia is negative. Potassium was replaced orally. UA shows 5-10 squamous epithelials 0-1 WBCs few bacteria, no RBCs no nitrates no leuks 1+ ketones. urine sodium and urine creatinine were added on. FENA is 2.8% Urine tox is positive for benzodiazepines which are patient's daily medication and may contribute to patients mental status. Chest x-ray shows no acute change. With patient's hypertension and alteration mental status head CT was obtained and showed Patient did have a brain MRI on 06/18/2023 which showed no acute or subacute infarct at that time. She also had an echo which showed EF of 65-70% no focal wall motion left ventricle was hyperdynamic and normal in size and thickness. Spoke with Dr. Dorantes covering for Dr. Olea for admission: Patient has had similar episodes there was some component of mental health potentially involved but patient is clearly hyponatremic at 1:22 a.m. today has been continuing to drop over time also hypokalemic, unclear she is taking her clonidine but sounds like she is taking her HCTZ regularly which can contribute. Quite hypertensive on this visit. Did receive labetalol came down from 2 30s over 1 teens to 199 but did not wish to drop more than 25% total. No other clear acute cause was found did have positive for benzos UDS which patient takes regularly. Accepts for admission. Asks for bridging orders with NS @ 100 mL/hour, fluid restrict to 1600 mL daily, continue with potassium 40 and discussed patient has some allergies to blood pressure medications was switched to as needed clonidine which patient may or may not be taking they are sure maybe able to give Norvasc 5 mg. Patient has allergy so switched to oral metoprolol IR 25 mg. Discharge Plan Departure Patient Disposition: Admitted As Inpatient Clinical Impression: Hyponatremia, Hypokalemia, Hypertension, Altered mental status Admit Date/Time: 08/19/23 00:53 Admit Provider: Mac Dorantes
[2023-08-18 23:25] LABS: Appearance Urine UA CLEAR; Bilirubin Urine UA NEGATIVE (NEGATIVE); Color Urine UA YELLOW; Glucose Urine UA NEGATIVE (Negative); Ketones Urine UA 1+ (NEGATIVE); Leukocyte Esterase Urine UA NEGATIVE (NEGATIVE); Nitrite Urine UA NEGATIVE (Negative); Occult Blood Urine UA NEGATIVE (Negative); Protein Urine UA NEGATIVE (Negative); Urobilinogen Urine UA 0.2 E.U./dL (0.2)
[2023-08-18 23:29] LABS: Ur Creatinine Normal (Normal); Ur Specific Gravity Normal (Normal); Urine Amphetamines Negative (Negative); Urine Barbiturates Negative (Negative); Urine Benzodiazepines Positive (Negative); Urine Cocaine Negative (Negative); Urine MDMA Negative (Negative); Urine Methadone Negative (Negative); Urine Methamphetamines Negative (Negative); Urine Opiates Negative (Negative); Urine Oxycodone Negative (Negative); Urine Phencyclidine Negative (Negative); Urine THC Negative (Negative); Urine Tricyclic Antidepressant Negative (Negative); Urine pH Normal (Normal)
[2023-08-18 23:32] LABS: pH Urine UA 6.5 (4.5-8.0)
--- NOTE | 2023-08-18 23:35 | DI.CT.S_ITS ---
PROCEDURE: CT HEAD/BRAIN WO CON INDICATIONS: htn, hyponatremia, altered TECHNIQUE: Noncontrast 4.5 mm thick angled axial sections acquired from the foramen magnum to the vertex, with coronal and sagittal reformats. For radiation dose reduction, the following was used: automated exposure control, adjustment of mA and/or kV according to patient size. COMPARISON: [facility], CT, CT HEAD/BRAIN WO CON, 06/18/2023, 0:31. FINDINGS: Image quality: Excellent. CSF spaces: Basal cisterns are patent. No extra-axial fluid collections. Ventricles are normal in size and shape. Brain: No midline shift. No intracranial masses or hemorrhage. No area of hypodensity in a large vascular distribution to suggest acute infarction. Periventricular hypodensity consistent with chronic microvascular ischemic change. Age-related parenchymal loss. Skull and face: Calvarium and visualized facial bones are intact, without suspicious lesions. Sinuses: Visualized sinuses and mastoids are clear. IMPRESSION: No acute intracranial abnormality. Dictated by: Alan Patel M.D. on 08/19/2023 at 0:28 Approved by: Alan Patel M.D. on 08/19/2023 at 0:29
[2023-08-18] MEDS: POTASSIUM CHLORIDE 20 MEQ TAB 40 MEQ PO (23:37)
[2023-08-18 23:48] LABS: Bacteria Urine Few (2-10); Culture Indicated Urine Cult Not Indicated; RBC Urine None Seen (0-5/HPF); Squamous Epithelial Cell Urine 5-10 /HPF (0-5/HPF); WBC Urine 0-1/HPF (0-5/HPF)
[2023-08-18] MEDS: LABETALOL 20 MG/4 ML SYRINGE 10 MG IV (23:52)
[2023-08-18 23:53] LABS: Ammonia (NH3) < 9 umol/L (9-30)
--- NOTE | 2023-08-18 23:56 | PC.NURSE ---
PROCESS PLANNER NOTE: kaci placed pt education given
[2023-08-19] VITALS (14 sets, daily range): BP systolic 147–203; BP diastolic 71–106; PULSE 63–81; RESP 14–19; TEMP 35.9–36.3; O2SAT 96–100; BMI 23.4
[2023-08-19 00:41] LABS: Creatinine Urine Random 24.7 mg/dL; Sodium Urine Random 102 mmol/L (30-90)
[2023-08-19] MEDS: METOPROLOL IR 25 MG TABLET PO (01:43)
[2023-08-19] MEDS: SODIUM CHLORIDE 0.9% 1,000 ML 100 ML IV ×3 (01:45→22:28)
--- NOTE | 2023-08-19 02:48 | PC.NURSE ---
Pt. admitted to room 214, accompanied by her spouse Richie. Richie reported she's more with it now, than earlier when we first got to the hospital. Patient able to states her name, place, time but confused with the day & date. Oriented to her room, call light. Encouraged to call for any assistance or if she needed to get OOB to the bathroom. Spouse & patient denies any fall at home for the past 3 months. Bed alarm activated pt. admitted for some confusion. Will continue paln of care & monitor.
--- NOTE | 2023-08-19 06:48 | PM.HP.1 ---
History of Present Illness History of Present Illness Date Patient Seen: 08/19/23 Time Patient Seen: 06:50 Chief complaint: Confused, trance like Narrative: 78-year-old female with history of hospitalizations multiple times for altered mental status she has a history of hypertension hypokalemia generalized anxietyDisorder and hyperlipidemia patient is admitted with altered mental status and confusion. patient is fairly reliable historian. Although presents a confusing story this morning. Patient says she feels just fine. Her kept checking on her yesterday telling her that she was acting weird. Patient states she was in her normal state of health. She got tired of her asking her why she was not feeling well and then started to act still sick. Unresponsive and not well. She did this she said because she was more worried about her and wanted him brought into the emergency department. This time she says she wants to go home she says she feels just fine. She has no complaints of chest pain dizziness fevers chills cough congestion no recent changes in her bladder or bowel habits. On workup and evaluation in the emergency department patient was found to be significantly hypertensive. She is hyponatremic and hypokalemic. In the emergency department patient was treated with metoprolol some IV fluids. Potassium replacement. Because of her changes in mental status hyponatremia and hypokalemia they were concerned and had her admitted to the hospital for further evaluation and workup. On evaluation this morning. She provides fairly lucid history she knows she is in [place] at [facility]. She says her coming to see her at noon. She would like to go home if possible. She has a normal mental status but certainly a confusing history [facility] Medical History Generalized anxiety disorder Measles Chicken pox Diverticular disease of colon (~01/2018) Hyperlipidemia Varicose veins of both lower extremities Hypertension Insomnia Surgical History Anesthesia History of mandibular surgery (~2006) Status post appendectomy (~1972) Family History Sister Family history of breast cancer Social History marital status: number of children: 0 household members: spouse lives independently: Yes caregiver/support person: No housing: house pets and animals: No education level: college occupational status: other current occupational exposures/hazards: No 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 kwame/bahai: [employer] special kwame needs: No leisure activities: exercise, music and other Smoking Status: Former smoker second hand exposure: No alcohol intake: former substance use type: does not use Meds Home Medications and Allergies Home Medications Medication Instructions Recorded Confirmed Type estradiol 0.01% (0.1 mg/gram) 1 g vaginal 2XW #42.5 grams 11/22/22 08/19/23 Rx vaginal cream diazepam 5 mg tablet 2.5 mg (1/2 x 5 mg) PO DAILY PRN 05/18/23 08/19/23 Rx insomnia #15 tabs clonidine HCl 0.2 mg tablet 0.2 mg PO TID PRN hypertensive 08/01/23 08/19/23 Rx emergency #30 tabs hydrochlorothiazide 25 mg tablet 25 mg PO DAILY 08/19/23 08/19/23 History zolpidem 12.5 mg tablet,extended 6.25 - 12.5 mg PO ONCE PM PRN 08/19/23 08/19/23 History release,multiphase sleep. Allergies Allergy/AdvReac Type Severity Reaction Status Date / Time bupropion [BUPROPION] Allergy Mild RASH Verified 08/18/23 22:02 lisinopril AdvReac Intermediate Cough Verified 08/18/23 22:02 olanzapine [From Zyprexa] AdvReac Intermediate puffiness/s Verified 08/18/23 22:02 welling Sulfa (Sulfonamide AdvReac Mild Lethargic Verified 08/18/23 22:02 Antibiotics) amlodipine AdvReac Feet Verified 08/18/23 22:02 swelling Exam Vital Signs (past 8 hours): - 08/18/23 23:00 08/18/23 23:00 08/18/23 23:30 Temperature Pulse Rate 102 H 100 H Respiratory Rate 19 21 Blood Pressure 212/121 H Pulse Oximetry 98 98 Oxygen Delivery Method Oxygen Flow Rate 08/18/23 23:31 08/18/23 23:31 08/18/23 23:57 Temperature Pulse Rate 100 H 81 Respiratory Rate 21 16 Blood Pressure 237/103 H Pulse Oximetry 98 99 Oxygen Delivery Method Room Air Oxygen Flow Rate 08/18/23 23:57 08/19/23 00:00 08/19/23 00:00 Temperature Pulse Rate 79 Respiratory Rate 18 Blood Pressure 167/84 H 201/96 H Pulse Oximetry 98 Oxygen Delivery Method Oxygen Flow Rate 08/19/23 00:16 08/19/23 00:16 08/19/23 00:22 Temperature Pulse Rate 77 77 Respiratory Rate 14 Blood Pressure 203/103 H 199/99 H Pulse Oximetry 98 Oxygen Delivery Method Oxygen Flow Rate 08/19/23 00:30 08/19/23 00:30 08/19/23 00:45 Temperature Pulse Rate 77 78 Respiratory Rate 15 14 Blood Pressure 199/98 H Pulse Oximetry 99 98 Oxygen Delivery Method Oxygen Flow Rate 08/19/23 00:45 08/19/23 01:00 08/19/23 01:00 Temperature Pulse Rate 77 Respiratory Rate 14 Blood Pressure 192/94 H 190/102 H Pulse Oximetry 99 Oxygen Delivery Method Oxygen Flow Rate 08/19/23 01:15 08/19/23 01:15 08/19/23 02:03 Temperature 96.7 F L Pulse Rate 77 81 Respiratory Rate 16 17 Blood Pressure 183/100 H 192/103 H Pulse Oximetry 99 100 Oxygen Delivery Method Room Air Oxygen Flow Rate 0 08/19/23 06:05 Temperature 97.4 F L Pulse Rate 64 Respiratory Rate 17 Blood Pressure 173/71 H Pulse Oximetry 98 Oxygen Delivery Method Oxygen Flow Rate 0 Oxygen Delivery Method Room Air Oxygen Flow Rate 0 Narrative Exam Narrative: Gen.: Alert no apparent distress good historian but confusing HEENT: Pupils equal round and reactive or mucosa is moist Cardio: S1-S2 regular rate and rhythm no murmurs appreciated. Respiratory: Lungs are clear to auscultation no wheezes or crackles normal respiratory effort. Abdomen: Soft nontender no rebound or guarding no liver spleen enlargement no appreciable hernias Extremities: Full range of motion no appreciable weakness no cyanosis or edema. Neurologic: Grossly intact. Objective Labs 08/18/23 22:00 08/18/23 22:00 Labs: Laboratory Results - last 24 hr 08/18/23 08/18/23 08/18/23 22:00 23:08 23:14 WBC 7.5 RBC 4.01 Hgb 12.8 Hct 36.0 MCV 89.8 MCH 31.8 MCHC 35.5 RDW 13.1 Plt Count 297 Neut % (Auto) 59.6 Lymph % (Auto) 27.4 [place] % (Auto) 11.8 Eos % (Auto) 0.6 L Baso % (Auto) 0.6 Neut # (Auto) 4500 Lymph # (Auto) 2100 [place] # (Auto) 900 Eos # (Auto) 0 Baso # (Auto) 0 Sodium 122 L Potassium 2.9 L Chloride 84 L Carbon Dioxide 25 BUN 18 H Creatinine 0.81 Estimated GFR > 60 BUN/Creatinine Ratio 22.2 H Glucose 124 H Calcium 9.7 Total Bilirubin 0.7 AST 32 ALT 24 Alkaline Phosphatase 84 Ammonia < 9 L Total Protein 8.0 Albumin 4.6 Globulin 3.4 Albumin/Globulin Ratio 1.4 Urine Color Yellow Urine Appearance Clear Urine pH 6.5 Ur Specific [place] 1.010 Urine Protein Negative Urine Glucose (UA) Negative Urine Ketones 1+ H Urine Occult Blood Negative Urine Nitrate Negative Urine Bilirubin Negative Urine Urobilinogen 0.2 Ur Leukocyte Esterase Negative Urine RBC None seen Urine WBC 0-1/hpf Ur Squamous Epith Cells 5-10 /hpf H Urine Bacteria Few (2-10) H Ur Culture Indicated? Cult not indicated Ur Random Sodium 102 H Urine Creatinine 24.7 U Opiates 300ng/mL cut Negative Ur Oxycodone Screen Negative Urine Methadone Screen Negative Ur Barbiturates Screen Negative U Tricyclic Antidepress Negative Ur Phencyclidine Scrn Negative Ur Amphetamines Screen Negative U Methamphetamines Scrn Negative Ur MDMA Scrn (Ecstasy) Negative U Benzodiazepines Scrn Positive H Urine Cocaine Screen Negative U Marijuana (THC) Screen Negative Assessment & Plan Assessment and plan (1) Altered mental status: Qualifiers: Altered mental status type: transient alteration of awareness Qualified Code(s): R40.4 - Transient alteration of awareness Status: Acute (2) Hypertensive urgency: Status: Acute (3) Hypokalemia: Status: Acute (4) Hyponatremia: Status: Acute Plan 78-year-old female who was admitted to the hospital because of concerning symptoms of just not feeling well. Provides a confusing history. Patient has a history of multiple hospitalizations for elevated blood pressure mental status changes. Her primary care physician thinks that there maybe some mental health related cause or source. Nonetheless she was admitted the hospital yesterday because of these concerning symptoms but nonetheless had hyponatremia hypokalemia and fairly elevated blood pressure. She was admitted to the hospital for correction of these. Hyponatremia. Patient's sodium was 122. She is chronically hyponatremic average of 132-128. She was given normal saline in the emergency department and will go ahead and fluid restrict her. Will have her stop her hydrochlorothiazide which may be a contributing factor. Hopefully we can get her sodium back up to normal rather quickly and discharge her with adjustment of her blood pressure medication Hypokalemia. Patient's potassium level was quite low at 2.2. Probable cause related to her hypokalemia. Patient's potassium will be replaced and we will monitor closely. Mental status changes. Patient with acute mental status changes with confusion. In a confusing patient's snoring history. Patient may have an underlying mental health disorder she is had a cerebrovascular workup. It appears to be neurologically intact and fairly reliable historian with a confusing admission started yesterday. Hypertensive urgency blood pressure was quite high. Providing IV and oral blood pressure medication DVT prophylaxis with Lovenox Disposition and plan. Correction of sodium potassium and electrolytes reach turning baseline mental status and high blood pressure and discharge when stable
[2023-08-19 07:17] LABS: Add Manual Diff / Slide Review NO; Basophils Absolute Auto 0 /uL (0-100); Basophils Percent Auto 0.6 % (0-2); Eosinophils Absolute Auto 0 /uL (0-450); Eosinophils Percent Auto 0.3 % (2-4); Hematocrit 35.7 % (36-46); Hemoglobin 12.7 g/dL (12.0-16.0); Lymphocytes Absolute Auto 1200 /uL (1100-4500); Lymphocytes Percent Auto 22.1 % (25-40); Mean Corpuscular HGB Conc 35.5 % (30-36); Mean Corpuscular Volume 90.1 fL (80-100); Monocytes Absolute Auto 600 /uL (0-900); Monocytes Percent Auto 11.6 % (3-14); Neutrophils Absolute Auto 3600 /uL (1500-7000); Neutrophils Percent Auto 65.4 % (50-75); Platelet Count 306 X10^3/uL (150-400); Red Blood Cell Count 3.96 X10^6/uL (4.0-5.2); Red Cell Distribution Width 13.4 % (11.6-14.8); White Blood Cell Count 5.5 X10^3/uL (4.5-11.0)
[2023-08-19 07:22] LABS: Alanine Aminotransferase 21 IU/L (<35); Albumin 4.2 g/dL (3.5-5.0); Albumin Globulin Ratio 1.3 (1.0-2.8); Alkaline Phosphatase 73 U/L (38-126); Aspartate Aminotransferase 29 IU/L (14-36); Bilirubin Total 0.7 mg/dL (0.2-1.3); Blood Urea Nitrogen 12 mg/dL (7-17); Calcium 9.3 mg/dL (8.4-10.2); Carbon Dioxide 25 mmol/L (22-32); Chloride 90 mmol/L (98-107); Estimated Glomerular Filt Rate > 60 mL/min (>60); Globulin 3.3 g/dL (1.7-4.1); Glucose 115 mg/dL (80-110); HEMOLYSIS < 15 (0-50); Potassium 3.4 mmol/L (3.4-5.1); Sodium 125 mmol/L (137-145); Total Protein 7.5 g/dL (6.3-8.2)
[2023-08-19] MEDS: POTASSIUM CHLORIDE 20 MEQ TAB 40 MEQ PO ×2 (08:35→16:12)
[2023-08-19] MEDS: ENOXAPARIN 40 MG/0.4 ML SYRINGE SUBCUT (08:35)
[2023-08-19] MEDS: AMLODIPINE 5 MG TABLET PO ×3 (08:35→21:51)
[2023-08-19] MEDS: LOSARTAN 50 MG TABLET PO (09:03)
[2023-08-19] MEDS: LOSARTAN 25 MG TABLET PO (10:34)
--- NOTE | 2023-08-19 12:06 | CM.DANOTE ---
Initial DCP Assessment Note Pt is a 78 yo female, resident of [place], with history of multiple hospitalizations for altered mental status, admitted for medical management and correction of altered mental status and irregular labs PCP: Usman Olea Payer: [facility] (not a MCR plan per chart review) Reviewed chart, met w/patient this morning to introduce self and role. Patient reports she and her are independent in all aspects. Spouse scheduled to visit bedside soon. Patient denies needs from this MAP [employer]TER. No barriers identified at this time to patient's safe discharge home w/family to assist; close outpatient f/u recommended. CM team will plan to follow closely in case any DC needs or concerns arise. 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 No Advance Directives on File No History Provided By Patient,Medical Record Prior Living Arrangements House Household Members spouse Type of transporation used prior to Relies on Others admit Independent with ADL's Yes Is patient alert and oriented? Yes Needs Assistance With Home Chores / Shopping Barriers to Discharge No Comment Home w/spouse expected once Altered mental status and lab values regulate Discharge Plan Home Transportation Arrangement Family Referrals Initiated None needed,Other Whiteboard Updated in Patient Room with Yes name and ext. # of Rug Drying Machine Operator
--- NOTE | 2023-08-19 15:14 | PC.NURSE ---
Addendum entered by Ju Rhoades R.N. 08/19/23 19:02: after metoprolol BP was 147/79 and her head feels better. Addendum entered by Ju Rhoades R.N. 08/19/23 16:45: pt states that she feels like her head is going to explode. notified provider for BP 175/81, HR 76, pt also has been awake since last night and did not take any naps today. pt reports she takes ambien every night and occasionally valium. VTO for metoprolol and norco, ok to give valium and tylenol and first dose of metoprolol now. Give norco if head ache persist. Original Note: pt was hypertensive c/o head pressure even after morning dose of losartan and amlodipine. notified provider regarding BP of 203/106, VTO for additional one time dose of amlodipine 5mg and losartan 25mg. provider's parameters were 180's-190's as long as patient was asymptomatic. After amlodipine and losartan BP dropped to 160's, pt denied and head ache or pressure. at bedside and said that patient seem to be improving but not all the way to her baseline. Pt still confused, does not know why she is here in even though I had explained it to her multiple times.
[2023-08-19] MEDS: ACETAMINOPHEN 325 MG TABLET 650 MG PO (16:04)
[2023-08-19] MEDS: diazePAM 5 MG TABLET 2.5 MG PO (16:05)
[2023-08-19] MEDS: METOPROLOL ER 50 MG TABLET PO (16:08)
[2023-08-19] MEDS: ZOLPIDEM 5 MG TABLET PO (21:51)
[2023-08-20 04:00] VITALS: BP 137/80; PULSE 71; RESP 18; TEMP 36.2; O2SAT 97
[2023-08-20 06:06] LABS: Add Manual Diff / Slide Review NO; Basophils Absolute Auto 100 /uL (0-100); Basophils Percent Auto 1.1 % (0-2); Eosinophils Absolute Auto 100 /uL (0-450); Eosinophils Percent Auto 0.8 % (2-4); Hematocrit 37.9 % (36-46); Hemoglobin 13.2 g/dL (12.0-16.0); Lymphocytes Absolute Auto 2000 /uL (1100-4500); Lymphocytes Percent Auto 29.4 % (25-40); Mean Corpuscular HGB Conc 34.7 % (30-36); Mean Corpuscular Hemoglobin 31.9 PG (26-34); Mean Corpuscular Volume 91.8 fL (80-100); Monocytes Absolute Auto 700 /uL (0-900); Monocytes Percent Auto 10.1 % (3-14); Neutrophils Absolute Auto 3900 /uL (1500-7000); Neutrophils Percent Auto 58.6 % (50-75); Platelet Count 319 X10^3/uL (150-400); Red Blood Cell Count 4.13 X10^6/uL (4.0-5.2); Red Cell Distribution Width 12.9 % (11.6-14.8); White Blood Cell Count 6.7 X10^3/uL (4.5-11.0)
[2023-08-20 06:13] LABS: Alanine Aminotransferase 20 IU/L (<35); Albumin 4.1 g/dL (3.5-5.0); Albumin Globulin Ratio 1.2 (1.0-2.8); Alkaline Phosphatase 71 U/L (38-126); Aspartate Aminotransferase 27 IU/L (14-36); BUN Creatinine Ratio 17.9 (6-22); Bilirubin Total 0.7 mg/dL (0.2-1.3); Blood Urea Nitrogen 12 mg/dL (7-17); Calcium 9.2 mg/dL (8.4-10.2); Carbon Dioxide 20 mmol/L (22-32); Chloride 98 mmol/L (98-107); Estimated Glomerular Filt Rate > 60 mL/min (>60); Globulin 3.5 g/dL (1.7-4.1); Glucose 109 mg/dL (80-110); HEMOLYSIS < 15 (0-50); Potassium 4.2 mmol/L (3.4-5.1); Sodium 126 mmol/L (137-145); Total Protein 7.6 g/dL (6.3-8.2)
[2023-08-20 08:00] VITALS: BP 165/82; PULSE 70; RESP 19; TEMP 36.3; O2SAT 99
[2023-08-20] MEDS: AMLODIPINE 5 MG TABLET PO (09:26)
[2023-08-20] MEDS: POTASSIUM CHLORIDE 20 MEQ TAB 40 MEQ PO (09:26)
[2023-08-20 09:27] VITALS: BP 165/82; PULSE 70
[2023-08-20] MEDS: LOSARTAN 50 MG TABLET PO (09:27)
[2023-08-20] MEDS: ENOXAPARIN 40 MG/0.4 ML SYRINGE SUBCUT (09:27)
[2023-08-20 09:28] VITALS: BP 162/82
[2023-08-20] MEDS: METOPROLOL ER 50 MG TABLET PO (09:28)
[2023-08-20] MEDS: SODIUM CHLORIDE 0.9% 1,000 ML 100 ML IV (09:31)
--- NOTE | 2023-08-20 12:50 | PM.DS.1 ---
History of Present Illness History of Present Illness Chief complaint: Confused, trance like Narrative: 78-year-old female with history of hospitalizations multiple times for altered mental status she has a history of hypertension hypokalemia generalized anxietyDisorder and hyperlipidemia patient is admitted with altered mental status and confusion. patient is fairly reliable historian. Although presents a confusing story this morning. Patient says she feels just fine. Her kept checking on her yesterday telling her that she was acting weird. Patient states she was in her normal state of health. She got tired of her asking her why she was not feeling well and then started to act still sick. Unresponsive and not well. She did this she said because she was more worried about her and wanted him brought into the emergency department. This time she says she wants to go home she says she feels just fine. She has no complaints of chest pain dizziness fevers chills cough congestion no recent changes in her bladder or bowel habits. On workup and evaluation in the emergency department patient was found to be significantly hypertensive. She is hyponatremic and hypokalemic. In the emergency department patient was treated with metoprolol some IV fluids. Potassium replacement. Because of her changes in mental status hyponatremia and hypokalemia they were concerned and had her admitted to the hospital for further evaluation and workup. On evaluation this morning. She provides fairly lucid history she knows she is in [place] at [facility]. She says her coming to see her at noon. She would like to go home if possible. She has a normal mental status but certainly a confusing history Discharge Providers Provider Date of admission: 08/19/23 00:53 Discharge Date: 08/20/23 Primary care physician: Usman Olea MD Discharge provider: Mac Dorantes MD Summary Hospital Course Discharge Diagnosis: Hyponatremia Hypokalemia Mental status changes Hypertensive urgency Hospital Course: Patient admitted to the hospital because of weakness and mental status changes. On arrival to the emergency she was found to be significantly hypertensive hype hypokalemia and hyponatremia. Because of her changes in mental status she was admitted the hospital for further evaluation. Patient had laboratory tests chest x-ray and CT scan. CT scan shows no acute injury patient had a echocardiogram just a few months ago which showed no significant valvular disease and MRI just a few months ago which also was normal. During her hospital stay she was placed on normal saline her sodium improved. She was placed on potassium replacement and her potassium repleted. At the time of discharge she was eating blood pressure was stabilized. Her was at bedside stating that she was back to normal. She was ambulating tolerating diet. We reviewed medications on discharge. She will go back on losartan 50 mg once a day. Will stop her hydrochlorothiazide because of her low sodium and low potassium. She will be placed on metoprolol 50 mg once a day. Will have her hold on her clonidine and not take this point until she talks to Dr. Olea. Discharge planning and instructions were reviewed with the patient and . Exam Vital Signs (past 8 hours): - 08/20/23 08:00 08/20/23 09:27 08/20/23 09:28 Temperature 97.3 F L Pulse Rate 70 70 Respiratory Rate 19 Blood Pressure 165/82 H 165/82 H 162/82 H Pulse Oximetry 99 Oxygen Flow Rate 0 Oxygen Delivery Method Room Air Oxygen Flow Rate 0 Narrative Exam Narrative: Gen.: Alert oriented no apparent distress HEENT: Pupils equal round and reactive or mucosa is moist Cardio: S1-S2 regular rate and rhythm no murmurs appreciated. Respiratory: Lungs are clear to auscultation no wheezes or crackles normal respiratory effort. Abdomen: Soft nontender no rebound or guarding no liver spleen enlargement no appreciable hernias Extremities: Full range of motion no appreciable weakness no cyanosis or edema. Neurologic: Grossly intact. Objective Labs 08/20/23 05:35 08/20/23 05:35 Labs: Laboratory Results - last 24 hr 08/20/23 05:35 WBC 6.7 RBC 4.13 Hgb 13.2 Hct 37.9 MCV 91.8 MCH 31.9 MCHC 34.7 RDW 12.9 Plt Count 319 Neut % (Auto) 58.6 Lymph % (Auto) 29.4 [place] % (Auto) 10.1 Eos % (Auto) 0.8 L Baso % (Auto) 1.1 Neut # (Auto) 3900 Lymph # (Auto) 2000 [place] # (Auto) 700 Eos # (Auto) 100 Baso # (Auto) 100 Sodium 126 L Potassium 4.2 Chloride 98 Carbon Dioxide 20 L BUN 12 Creatinine 0.67 Estimated GFR > 60 BUN/Creatinine Ratio 17.9 Glucose 109 Calcium 9.2 Total Bilirubin 0.7 AST 27 ALT 20 Alkaline Phosphatase 71 Total Protein 7.6 Albumin 4.1 Globulin 3.5 Albumin/Globulin Ratio 1.2 PFSH Medical History Generalized anxiety disorder Measles Chicken pox Diverticular disease of colon (~01/2018) Hyperlipidemia Varicose veins of both lower extremities Hypertension Insomnia Surgical History Anesthesia History of mandibular surgery (~2006) Status post appendectomy (~1972) Family History Sister Family history of breast cancer Social History marital status: number of children: 0 household members: spouse lives independently: Yes caregiver/support person: No housing: house pets and animals: No education level: college occupational status: other current occupational exposures/hazards: No 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 kwame/hoahaoism: Gnosticism special kwame needs: No leisure activities: exercise, music and other Smoking Status: Former smoker second hand exposure: No alcohol intake: former substance use type: does not use Discharge Plan Discharge Plan Patient Disposition: Home Discharge orders & Medications Prescriptions: New losartan 50 mg tablet 50 mg PO DAILY Qty: 30 1RF metoprolol succinate 50 mg tablet extended release 24 hr 50 mg PO DAILY Qty: 30 0RF Continued estradiol 0.01 % (0.1 mg/gram) cream 1 g VAG 2XW Qty: 42.5 4RF diazepam 5 mg tablet 2.5 mg PO DAILY PRN (Reason: insomnia) Qty: 15 1RF zolpidem 12.5 mg tablet,ext release multiphase 6.25 - 12.5 mg PO ONCE PM PRN (Reason: sleep.) Discontinued clonidine HCl 0.2 mg tablet 0.2 mg PO TID PRN (Reason: hypertensive emergency) Qty: 30 3RF hydrochlorothiazide 25 mg tablet 25 mg PO DAILY Patient Comments: Pt. took 2 tabs. this morning. Follow up/Referrals: Usman Olea MD [Primary Care Provider] - Visit Report/Discharge Packet Stand Alone Forms: Patient Portal/API, Stroke Signs & Symptoms Discharge Data Primary Care Provider: Usman Olea
== END 2023-08-20 14:24 | disposition home or self-care (01) | DRG 641 ==
LOC: ED 08-19 00:49 → AC 08-19 00:54
PROVIDERS: Admitting Provider Family Medicine; Emergency Provider Emergency Medicine; PCP Internal Medicine; Referring Provider Emergency Medicine; Visit Provider Family Medicine
DX: E87.1 Hypo-osmolality and hyponatremia (principal); G93.40 Encephalopathy, unspecified; I16.0 Hypertensive urgency; E87.6 Hypokalemia; G47.00 Insomnia, unspecified; I10 Essential (primary) hypertension; Z87.891 Personal history of nicotine dependence
CPT/HCPCS: 36415; 70450; 71045; 80053; 80305; 81001; 82140; 82570; 82962; 84300; 85025; 93005; 96374; 99233; 99238; 99285; J1650

== ENCOUNTER → 2023-08-28 11:26 | Outpatient (CLI) | payer OTHER, SELFPAY ==
[2023-08-19 01:52] VITALS: BMI 23.4
[2023-08-28 13:15] LABS: BUN Creatinine Ratio 18.2 (6-22); Blood Urea Nitrogen 16 mg/dL (7-17); Calcium 9.5 mg/dL (8.4-10.2); Carbon Dioxide 28 mmol/L (22-32); Chloride 94 mmol/L (98-107); Estimated Glomerular Filt Rate > 60 mL/min (>60); Glucose 94 mg/dL (80-110); HEMOLYSIS < 15 (0-50); Sodium 125 mmol/L (137-145)
[2023-08-28 13:18] LABS: Potassium 5.6 mmol/L (3.4-5.1)
== END ==
PROVIDERS: PCP Internal Medicine; Referring Provider Internal Medicine; Visit Provider Internal Medicine
DX: E87.1 Hypo-osmolality and hyponatremia (principal); E87.6 Hypokalemia; I10 Essential (primary) hypertension
CPT/HCPCS: 36415; 80048